=== PATIENT | female | born 1985 | race Two or more races ===

== ENCOUNTER 2024-05-14 17:30 | Inpatient (IN) | payer MEDICAID, OTHER ==
[~2024-05-14] VITALS: Ht 172.7 cm; Wt 123.6 kg
--- NOTE | 2024-05-14 18:17 | ED.PDOC ---
GI ASSESSMENT HPI Comments 38-year-old female who comes in with chief complaint of left-sided abdominal pain times 2-3 days. The patient denies any fever or chills. At this time, the patient's pain is a 10/10. There has been some nausea and diarrhea. The patient has a history of diverticulitis and states that the pain feels somewhat similar. The patient denies any other complaints at this time. Chief Complaint: Abdominal Pain Time Seen by MD: 17:39 Reviewed Notes: Nurses Notes, Medications, Allergies (No allergies to medications) Allergies: Coded Allergies: NO KNOWN ALLERGIES (Unverified , 05/14/24) Information Source: Patient Mode of Arrival: Ambulatory Timing: Days (Symptoms started 2-3 days ago) Duration: Since onset Prehospital treatment: None Quality: Aching, Cramping Vomitus: None Stool: Watery Severity: Moderate Recent: None Recent Hx of: Other (History of diverticulitis) Pain Location: LUQ, LLQ Modifying Factors: Nothing Associated sign and symptoms: Nausea, Diarrhea, Abdominal Pain Past Medical History PAST MEDICAL HISTORY: Thyroid Past Medical History (Other): Diverticulitis Surgical History: Cholecystectomy, Family History Family History: No family hx of Cancer, No family hx of DM, No family hx of Heart jacy Social History Smoker: Non-Smoker Alcohol: Denies ETOH Use Drugs: Denies Drug Use Lives In: Home Constitutional: denies: chills, diaphoresis, fatigue, fever, malaise, sweats, weakness, others EENTM: denies: blurred vision, double vision, ear bleeding, ear discharge, ear drainage, ear pain, ear ringing, eye pain, eye redness, hearing loss, mouth pain, mouth swelling, nasal discharge, nose bleeding, nose congestion, nose pain, photophobia, tearing, throat pain, throat swelling, voice changes, others Respiratory: denies: cough, hemoptysis, orthopnea, SOB at rest, shortness of breath, SOB with excertion, stridor, wheezing, others Cardiovascular: denies: chest pain, dizzy spells, diaphoresis, Dyspnea on exertion, edema, irregular heart beat, left arm pain, lightheadedness, palpitations, PND, syncope, others Gastrointestinal: reports: abdominal pain, diarrhea, nausea; denies: abdomen distended, blood streaked bowels, constipated, dysphagia, difficulty swallowing, hematemesis, melena, poor appetite, poor fluid intake, rectal bleeding, rectal pain, vomiting, others Genitourinary: denies: abnormal vagina bleeding, burning, dyspareunia, dysuria, flank pain, frequency, hematuria, incontinence, pain, , vagina discharge, urgency, others Neurological: denies: dizziness, fainting, headache, left sided numbness, left sided weakness, numbness, paresthesia, pre-existing deficit, right sided numbness, right sided weakness, seizure, speech problems, tingling, tremors, weakness, others Musculoskeletal: denies: back pain, gout, joint pain, joint swelling, muscle pain, muscle stiffness, neck pain, others Integumetry: denies: bruises, change in color, change in hair/nails, dryness, laceration, lesions, lumps, rash, wounds, others Allergic/Immunocompromised: denies: Difficulty Healing, Frequent Infections, Hives, Itching, others Hematologic/Lymphatic: denies: anemia, blood clots, easy bleeding, easy bruising, swollen glands, others Endocrine: denies: excessive hunger, excessive sweating, excessive thirst, excessive urination, flushing, intolerance to cold, intolerance to heat, unexplained weight gain, unexplained weight loss, others Psychiatric: denies: anxiety, bipolar disorder, depression, hopeless, panic disorder, schizophrenia, sleepless, suicidal, others Physical Exam General Appearance: Moderate Distress HEENT: Normal ENT Inspection, Pharynx Normal, TMs Normal Neck: Full Range of Motion, Non-Tender, Normal, Normal Inspection Respiratory: Chest Non-Tender, Lungs Clear, No Accessory Muscle Use, No Resp iratory Distress, Normal Breath Sounds Cardiovascular: No Edema, No JVD, No Murmur, No Gallop, Normal Peripheral Pulses, Regular Rate/Rhythm Breast Exam: Deferred Gastrointestinal: LLQ, LUQ, No Organomegaly, No Pulsatile Mass, Normal Bowel Sounds, Soft, Tenderness Genitalia: Deferred Pelvic: Deferred Rectal: Deferred Extremities: No calf tenderness, Normal capillary refill, Normal inspection, Normal range of motion, Non-tender, No pedal edema Musculoskeletal : Apperance: Normal Neurologic: Alert, special education tutor II-XII nml as Tested, No Motor Deficits, Normal Affect, Normal Mood, No Sensory Deficits Cerebellar Function: Normal Reflexes: Normal Skin: Dry, Normal Color, Warm Lymphatic: No Adenopathy Was a procedure done? Was a procedure done?: No GI differential Dx Differential Diagnosis: Appendicitis, Gastritis/PUD, Gastroenteritis, Inflammatory BD, Ischemic Bowel, Pancreatitis, UTI, Electrolyte Imbalance, Food Poisoning X-Ray, Labs, Meds, VS Vital Signs Date Time Temp Pulse Resp B/P (MAP) Pulse Ox O2 Delivery O2 Flow Rate FiO2 05/14/24 17:39 98.1 95 16 134/90 (105) 98 Lab Test 05/14/24 18:23 05/14/24 18:15 Range/Units Urine Color Yellow Yellow Urine Clarity Clear Clear Urine pH 6.0 5.0-9.0 Urine Specific [place] 1.025 1.001-1.035 Urine Protein Negative Negative Urine Ketones Negative Negative Urine Blood 2+ H Negative /uL Urine Nitrite Negative Negative Urine Bilirubin Negative Negative Urine Urobilinogen Normal Negative mg/dL Urine Leukocyte Esterase Negative Negative /uL Urine RBC 9 0 - 4 /hpf Urine WBC 4 0 - 5 /hpf Urine Squamous Epithelial Cells Few <5 /hpf Urine Bacteria Few H None Seen /hpf Urine Glucose Normal Normal mg/dL White Blood Count 6.8 4.4-10.8 10^3/uL Red Blood Count 4.48 4.0-5.20 10^6/uL Hemoglobin 12.5 12.2-16.2 g/dL Hematocrit 38.0 36.0-46.0 % Mean Corpuscular Volume 84.7 80.0-100.0 fL Mean Corpuscular Hemoglobin 27.8 L 28.0-32.0 pg Mean Corpuscular Hemoglobin Concent 32.8 32.0-36.0 g/dL Red Cell Distribution Width 15.7 H 11.8-14.3 % Platelet Count 343 140-450 10^3/uL Mean Platelet Volume 6.6 L 6.9-10.8 fL Neutrophils (%) (Auto) 61.7 37.0-80.0 % Lymphocytes (%) (Auto) 29.1 10.0-50.0 % Monocytes (%) (Auto) 6.2 0.0-12.0 % Eosinophils (%) (Auto) 2.3 0.0-7.0 % Basophils (%) (Auto) 0.7 0.0-2.0 % Neutrophils # (Auto) 4.2 1.6-8.6 10 ^3/uL Lymphocytes # (Auto) 2.0 0.4-5.4 10 ^3/uL Monocytes # (Auto) 0.4 0-1.3 10 ^3/uL Eosinophils # (Auto) 0.2 0-0.8 10 ^3/uL Basophils # (Auto) 0 0-0.2 10 ^3/uL Nucleated Red Blood Cells 0.1 % Sodium Level 140 136-145 mmol/L Potassium Level 3.7 3.5-5.1 mmol/L Chloride Level 107 98-107 mmol/L Carbon Dioxide Level 28 20-31 mmol/L Anion Gap 5 5-15 Blood Urea Nitrogen 11 9-23 mg/dL Creatinine 0.94 0.550-1.02 mg/dL Glomerular Filtration Rate Calc 79 >90 mL/min BUN/Creatinine Ratio 11.7 10.0-20.0 Serum Glucose 100 74-106 mg/dL Calcium Level 9.6 8.7-10.4 mg/dL Total Bilirubin 0.4 0.2-1.0 mg/dL Aspartate Amino Transferase (AST) 18 13-40 U/L Alanine Aminotransferase (ALT) 25 7-40 U/L Alkaline Phosphatase 118 H 46-116 U/L Total Protein 7.5 5.7-8.2 g/dL Albumin 4.6 3.2-4.8 g/dL Lipase 47 12-53 U/L IV Hep-Lock has been established. The patient was being given morphine 4 mg IV push for the pain The patient was given Zofran 4 mg IV push for the nausea The urine test is negative for leukocyte esterase The CBC is within normal limits. The CT scan of the abdomen and pelvis shows: IMPRESSION: 1. Mucosal thickening throughout the distal transverse and left colon with scattered diverticuli. There is stranding in the mesenteric fat of the distal descending colon which may represent non complicated diverticulitis. There is n o free air or abscess formation. Because of the findings, the patient was being started on Flagyl 500 mg IV piggyback The patient understands and is in agreement with the management. The patient was being admitted with a diagnosis of acute diverticulitis. Images Reviewed?: Images reviewed and evaluated by me Time of 1ST Reevaluation: 18:17 Reevaluation 1ST: Unchanged Patient Education/Counseling: Diagnosis, Treatment, Prognosis Family Education/Counseling: No Family Present Departure 1 Departure Time of Disposition: 18:38 Impression: Primary Impression: Intractable abdominal pain Additional Impression: Acute diverticulitis Disposition: ADMITTED INPATIENT Admit to: Med Surg Condition: Fair Critical Care Note Critical Care Time?: No Stability Stability form required: Yes Unstable for transfer: ED Physician Assesment (Clinical assesment) Heart Score Heart Score: Heart Score Response (Comments) Value History N/A 0 EKG N/A 0 Age N/A 0 Risk Factors N/A 0 Troponin N/A 0 Total 0 PINO CAMPOS MD May 14, 2024 18:17
[2024-05-14 18:28] LABS: Basophils # (auto) 0 10 ^3/uL (0-0.2); Basophils % (auto) 0.7 % (0.0-2.0); Eosinophils # (auto) 0.2 10 ^3/uL (0-0.8); Eosinophils % (auto) 2.3 % (0.0-7.0); Hemoglobin 12.5 g/dL (12.2-16.2); Lymphocytes % (auto) 29.1 % (10.0-50.0); Mean Corpuscular Hemoglobin 27.8 pg (28.0-32.0); Mean Corpuscular Hgb Conc. 32.8 g/dL (32.0-36.0); Mean Corpuscular Volume 84.7 fL (80.0-100.0); Monocytes # (auto) 0.4 10 ^3/uL (0-1.3); Monocytes % (auto) 6.2 % (0.0-12.0); Neutrophils # (auto) 4.2 10 ^3/uL (1.6-8.6); Neutrophils % (auto) 61.7 % (37.0-80.0); Nucleated Red Blood Cells % 0.1 %; Platelet Count (auto) 343 10^3/uL (140-450); Red Blood Cells 4.48 10^6/uL (4.0-5.20); Red Cell Distribution Width 15.7 % (11.8-14.3); White Blood Cell 6.8 10^3/uL (4.4-10.8)
--- NOTE | 2024-05-14 18:29 | DVH ---
Exam: CT CT AB PEL WO CON-NO ORAL OR IV History: pain Comparison Study: None available at time of dictation. TECHNIQUE: Multidetector CT of the abdomen was performed from lung bases to pubic symphysis. Imaging was performed without IV contrast. Axial, coronal and sagittal multiplanar reformats were obtained fr om the axial data set by the technologist. Radiation Dose Information: CT Dose: CTDI volume is 26.62 mGy. Dose-length product is 1450.73 mGy*cm FINDINGS: Evaluation of solid organs is limited due to lack of intravenous contrast use. Findings: Lung Bases: No acute or significant lung base finding. Normal heart size. No pleural or pericardial effusion. Liver: The liver is normal in size. No focal lesions. Gallbladder and Biliary Tree: Gallbladder has been surgically removed. Spleen: Unremarkable Pancreas: The pancreas is grossly normal in appearance. Adrenal Glands: Unremarkable Kidneys: Kidneys are grossly normal without calculi or hydronephrosis. Bladder: Grossly unremarkable for degree of distention. Bowel: The stomach is grossly normal in appearance. Small bowel and colon are normal in caliber and d istribution. Mucosal thickening of the distal transverse and left colon with scattered diverticulosis . There is minimal pericolonic stranding in the fat which may represent uncomplicated diverticulitis. There is no free air or free fluid. The appendix is not visualized; however, no secondary findings of acute appendicitis identified. Ascites: Absent Lymphadenopathy: No mesenteric, retroperitoneal or periportal lymphadenopathy. Abdominal Wall and Mesentery: Unremarkable. Vasculature: The visualized abdominal aorta is normal in size and caliber. Evaluation of abdominal a nd pelvic vessels is limited due to lack of intravenous contrast. Pelvic Organs: Unremarkable Musculoskeletal: No aggressive focal bony lesions, acute fractures or dislocation. Soft tissues: Unremarkable IMPRESSION: 1. Mucosal thickening throughout the distal transverse and left colon with scattered diverticuli. The re is stranding in the mesenteric fat of the distal descending colon which may represent non complica darrian diverticulitis. There is no free air or abscess formation. Radiation optimization: All CT scans at this facility use at least one of these dose optimization berna hniques: automated exposure control mA and/or kV adjustment per patient size (includes targeted exam s where dose is matched to clinical indication) or iterative reconstruction. HS:Y
[2024-05-14 18:30] LABS: Urine Bacteria FEW /hpf (None Seen); Urine Blood 2+ /uL (Negative); Urine Clarity Clear (Clear); Urine Color Yellow (Yellow); Urine Protein, UAD Negative (Negative); Urine Specific Gravity 1.025 (1.001-1.035); Urine Squamous Epithelial Cell FEW /hpf (<5); Urine Urobilinogen Normal (Negative); Urine WBC 4 /hpf (0 - 5)
[2024-05-14 18:44] LABS: Alanine Aminotransferase 25 U/L (7-40); Albumin 4.6 g/dL (3.2-4.8); Anion Gap 5 (5-15); Aspartate Aminotransferase 18 U/L (13-40); BUN/Creatinine Ratio 11.7 (10.0-20.0); Bilirubin, Total 0.4 mg/dL (0.2-1.0); Blood Urea Nitrogen 11 mg/dL (9-23); Calcium 9.6 mg/dL (8.7-10.4); Carbon Dioxide 28 mmol/L (20-31); Chloride 107 mmol/L (98-107); Glucose 100 mg/dL (74-106); Potassium 3.7 mmol/L (3.5-5.1); Sodium 140 mmol/L (136-145); Total Protein 7.5 g/dL (5.7-8.2)
[2024-05-14 18:51] LABS: Alkaline Phosphatase 118 U/L (46-116)
[2024-05-14 19:00] LABS: Lipase 47 U/L (12-53)
[2024-05-14] MEDS: ONDANSETRON HCL 4 MG/2 ML VIAL IV ONE (20:25)
[2024-05-14] MEDS: MORPHINE SULFATE 4 MG/ML SYR/VIAL IV ONE (20:26)
[2024-05-14] MEDS: metroNIDAZOLE 500MG/100ML 100 ML IV ONE (20:45)
[2024-05-14 20:49] VITALS: PULSE 81; RESP 16; O2SAT 97
--- NOTE | 2024-05-14 21:07 | DVHHPRES ---
History of Present Illness Resident Creating Document: JOLENE NEWBY RESIDENT History of Present Illness This is a 38 years old female with past medical history of diverticulitis, Juancarlos thyroiditis, endometriosis presented to the ED with a chief complaint of left lower abdominal pain and blood in stool for 2 days prior to this admission. Patient states that abdominal pain is colicky in nature, radiates to back ,10/10 associated with nausea and hematochezia. Also complains of dysuria and burning sensation in the urine for the same she duration. The patient mentioned that last flare-up of diverticulitis was in last January,, was hospitalized but never did any colonoscopy or followed by GI before. The patient denies chest pain, shortness of breath, dizziness, diaphoresis, sick contact, diarrhea or constipation. Past Medical History Diverticulitis, Juancarlos thyroiditis, endometriosis Past Surgical History Cholecystectomy, , laparoscopy Family History None Past Social History Lives with family Nonsmoker, nonalcoholic and never tried any drugs Review of Systems Constitutional: Yes: Chills; No: Fever, Sweats, Weakness, Malaise, Other Eyes: No: Pain, Vision change, Conjunctivae inflammation, Eyelid inflammation, Other, Redness ENT: No: Ear pain, Ear discharge, Nose pain, Nose discharge, Nose congestion, Mouth pain, Mouth swelling, Throat pain, Throat swelling, Other Respiratory: No: Cough, Dry, Shortness of breath, SOB with excertion, Wheezing, Hemoptysis, Pleuritic Pain, Sputum, Wheezing, Other Cardiovascular: No: Chest Pain, Palpitations, Orthopnea, Paroxysmal Noc. Dyspnea, Edema, Lt Headedness, Other Gastrointestinal: Nausea, Abdominal Pain, Hematochezia; No: Vomiting, Diarrhea, Constipation, Melena, Other Genitourinary: Dysuria, Frequency; No Incontinence, No Hematuria, No Retention, No Other Musculoskeletal: No: other, neck pain, shoulder pain, arm pain, back pain, hand pain, leg pain, foot pain Skin: No: Rash, Lesions, Jaundice, Bruising, Other Neurological: No: Weakness, Numbness, Incoordination, Change in speech, Confusion, Seizures, Other Allergies: Coded Allergies: NO KNOWN ALLERGIES (Unverified , 05/14/24) Exam Vital Signs Vital Signs Date Time Temp Pulse Resp B/P (MAP) Pulse Ox O2 Delivery O2 Flow Rate FiO2 05/14/24 20:51 81 16 134/79 (97) 96 05/14/24 20:49 Room Air* 0 21 05/14/24 17:39 98.1 Exam Physical examination: General Appearance: Alert, Oriented X3, Cooperative, No acute distress HEENT: Atraumatic, PERRLA, EOMI, Mucous membrane moist/pink Respiratory: Clear to auscultation, Normal air movement Cardiovascular: Regular rate, Normal S1, Normal S2, No murmurs, no chest wall tenderness Abdominal: Normal bowel sounds, Soft, mild tenderness in the Lt hypochondriac region, No hepatospenomegaly, No masses Extremities: No clubbing, No cyanosis, No edema, Normal pulses, No tenderness/swelling Skin: No rashes, No breakdown, No significant lesion Neuro: Normal gait, Normal speech, Strength at 5/5 X4 ext, Normal tone, Sensation intact, grossly intact cranial nerves. Psych/Mental Status: Mental status NL, Mood NL Labs/Xrays Labs Test 05/14/24 18:23 05/14/24 18:15 Range/Units Urine Color Yellow Yellow Urine Clarity Clear Clear Urine pH 6.0 5.0-9.0 Urine Specific [place] 1.025 1.001-1.035 Urine Protein Negative Negative Urine Ketones Negative Negative Urine Blood 2+ H Negative /uL Urine Nitrite Negative Negative Urine Bilirubin Negative Negative Urine Urobilinogen Normal Negative mg/dL Urine Leukocyte Esterase Negative Negative /uL Urine RBC 9 0 - 4 /hpf Urine WBC 4 0 - 5 /hpf Urine Squamous Epithelial Cells Few <5 /hpf Urine Bacteria Few H None Seen /hpf Urine Glucose Normal Normal mg/dL White Blood Count 6.8 4.4-10.8 10^3/uL Red Blood Count 4.48 4.0-5.20 10^6/uL Hemoglobin 12.5 12.2-16.2 g/dL Hematocrit 38.0 36.0-46.0 % Mean Corpuscular Volume 84.7 80.0-100.0 fL Mean Corpuscular Hemoglobin 27.8 L 28.0-32.0 pg Mean Corpuscular Hemoglobin Concent 32.8 32.0-36.0 g/dL Red Cell Distribution Width 15.7 H 11.8-14.3 % Platelet Count 343 140-450 10^3/uL Mean Platelet Volume 6.6 L 6.9-10.8 fL Neutrophils (%) (Auto) 61.7 37.0-80.0 % Lymphocytes (%) (Auto) 29.1 10.0-50.0 % Monocytes (%) (Auto) 6.2 0.0-12.0 % Eosinophils (%) (Auto) 2.3 0.0-7.0 % Basophils (%) (Auto) 0.7 0.0-2.0 % Neutrophils # (Auto) 4.2 1.6-8.6 10 ^3/uL Lymphocytes # (Auto) 2.0 0.4-5.4 10 ^3/uL Monocytes # (Auto) 0.4 0-1.3 10 ^3/uL Eosinophils # (Auto) 0.2 0-0.8 10 ^3/uL Basophils # (Auto) 0 0-0.2 10 ^3/uL Nucleated Red Blood Cells 0.1 % Sodium Level 140 136-145 mmol/L Potassium Level 3.7 3.5-5.1 mmol/L Chloride Level 107 98-107 mmol/L Carbon Dioxide Level 28 20-31 mmol/L Anion Gap 5 5-15 Blood Urea Nitrogen 11 9-23 mg/dL Creatinine 0.94 0.550-1.02 mg/dL Glomerular Filtration Rate Calc 79 >90 mL/min BUN/Creatinine Ratio 11.7 10.0-20.0 Serum Glucose 100 74-106 mg/dL Calcium Level 9.6 8.7-10.4 mg/dL Total Bilirubin 0.4 0.2-1.0 mg/dL Aspartate Amino Transferase (AST) 18 13-40 U/L Alanine Aminotransferase (ALT) 25 7-40 U/L Alkaline Phosphatase 118 H 46-116 U/L Total Protein 7.5 5.7-8.2 g/dL Albumin 4.6 3.2-4.8 g/dL Lipase 47 12-53 U/L Assessment/Plan Assessment/Plan Assessment and plan: # Intractable abdominal pain likely secondary to diverticulitis - CT abdomen pelvis revealed mucosal thickening throughout the distal transverse and left colon with scattered diverticuli and there is stranding in the mesenteric fat of the distal descending colon which may represent non complicated diverticulitis. - NPO - IV normal saline at 75 ml/hr - IV ceftriaxone 2 gm daily - IV metronidazole 500 mg t.i.d. - IV morphine 2 mg q.4 p.r.n. - IV ondansetron 4 mg q.4 p.r.n. 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 # Morbid obesity ( BMI 41.4 kg/m2) - Counseled patient regarding Mediterranean diet, lifestyle modification and physical exercise. # PUD prophylaxis - Pepcid 20 mg p.o. daily # DVT prophylaxis - Not recommended as patient is mobile Goal of Care discussed with the patient for more than 17 minutes full code Plan discussed with Dr. Garcia Plan discussed with: Patient, Other Date of Service: May 14, 2024 Billing Provider: IRIS GARCIA MD Common Visit Codes: [id number] INP/OBS CARE (HIGH) JOLENE NEWBY RESIDENT May 14, 2024 21:07 IRIS GARCIA MD May 15, 2024 20:11
[2024-05-14] MEDS ORDERED: cefTRIAXone 1GM/50ML D5W 50 ML IV ONE (21:15)
[2024-05-14] MEDS: cefTRIAXone 2GM/50ML D5W 50 ML IV ONE (21:39)
[2024-05-14] MEDS ORDERED: ONDANSETRON HCL 4 MG/2 ML VIAL IV PRN (22:00)
[2024-05-15] VITALS (9 sets, daily range): BP systolic 99–145; BP diastolic 58–76; PULSE 73–85; RESP 17–71; TEMP 98–98.7; O2SAT 94–99
[2024-05-15] MEDS: SODIUM CHLORIDE 0.9% 1,000 ML IV SCH (00:35)
[2024-05-15] MEDS ORDERED: LEVO200T7 PO (01:02)
[2024-05-15] MEDS ORDERED: LAMO100T44 PO (01:02)
[2024-05-15] MEDS ORDERED: METH18TA5 PO (01:02)
[2024-05-15] MEDS ORDERED: DESV1TAB15 PO (01:02)
[2024-05-15] MEDS ORDERED: ARIP20TA4 PO (01:02)
[2024-05-15] MEDS: MORPHINE SULFATE 4 MG/ML SYR/VIAL IV PRN (01:58)
[2024-05-15] MEDS: LEVOTHYROXINE SODIUM 100 MCG TAB PO SCH (05:47)
[2024-05-15] MEDS: metroNIDAZOLE 500MG/100ML 100 ML IV SCH (05:48)
[2024-05-15] MEDS ORDERED: cefTRIAXone 1GM/50ML D5W 50 ML IV SCH (10:00)
[2024-05-15] MEDS: cefTRIAXone 2GM/50ML D5W 50 ML IV SCH (10:10)
--- NOTE | 2024-05-15 11:35 | DVHPN2 ---
Progress Note Date Seen: May 15, 2024 Medical Necessity Reason Pt with a Central, PICC or Fol: No Subjective Patient reports: No new complaints Review of Systems: HEENT:Normal, CVS:Normal, RESPIRATORY:Normal, GI:Normal, :Normal, MSK:Normal, NEURO:Normal Objective vital signs Vital Sign Date Time Temp Pulse Resp B/P (MAP) Pulse Ox O2 Delivery O2 Flow Rate FiO2 05/15/24 08:53 98.7 78 18 100/63 (75) 98 98.7 05/15/24 02:13 Room Air* 0 21 Total Intake and Output 05/14/24 05/14/24 05/15/24 15:00 23:00 07:00 Intake Total 150 ml 0 ml Balance 150 ml 0 ml medications Current Medications Medications Dose Ordered Sig/Rohan Route Start Time Stop Time Status Last Admin Dose Admin Sodium Chloride 1,000 ml @ 75 mls/hr [id number] IV 05/14/24 21:15 05/15/24 00:35 75 MLS/HR Metronidazole 100 ml @ 100 mls/hr TID IV 05/15/24 06:00 05/15/24 05:48 100 MLS/HR Morphine Sulfate 4 mg Q4HPRN PRN IV 05/15/24 02:00 05/15/24 01:58 4 MG Ondansetron HCl 4 mg Q8HPRN PRN IV 05/14/24 22:00 Ceftriaxone Sodium/Dextrose 50 ml @ 50 mls/hr DAILY IV 05/15/24 10:00 05/15/24 10:10 50 MLS/HR Levothyroxine Sodium 200 mcg QAM@0600 PO 05/15/24 06:00 05/15/24 05:47 200 MCG Examination: GENERAL:Normal, HEENT:Normal, NECK:Normal, LUNGS:Normal, CVS:Normal, ABDOMEN:Normal, MSK:Normal, SKIN:Normal, NEURO:Normal, :Normal laboratory and microbiology Laboratory Tests 05/14/24 18:15 Test 05/14/24 18:15 Range/Units Serum Glucose 100 74-106 mg/dL Problem List/Assessment/Plan Problem List/Assessment/Plan #1 acute diverticulitis: iv antibiotics, ivf #2 uncontrolled hypothyroidism: adjust meds #3 morbid obesity #4 bipolar disorder Plan discussed with: Patient My Orders My Orders Orders - TUNDE CALVILLO MD Procedure Category Date Status Time Lamotrigine Tablet PHA 05/16/24 Verified (Lamictal Tablet) 10:00 Clear Liq Diet DIET 05/15/24 Verified Lunch Hydrocodone-Acet PHA 05/15/24 Verified 5/325mg Tab ([place] 11:45 Morphine Sulfate PHA 05/15/24 Verified Injection 11:45 Basic Metabolic Panel LAB 05/16/24 Verified 06:00 Complete Blood Count LAB 05/16/24 Verified 06:00 Date of Service: May 15, 2024 Billing Provider: TUNDE CALVILLO MD Common Visit Codes: [id number] INP/OBS CARE(HIGH) TUNDE CALVILLO MD May 15, 2024 11:35
[2024-05-15] MEDS ORDERED: MORPHINE SULFATE INJ 2 MG/ml SYRG IV PRN (11:45)
[2024-05-15] MEDS: HYDROcodone-ACET 5/325MG TAB PO PRN (12:35)
[2024-05-16 01:03] VITALS: BP 98/56; PULSE 76; RESP 18; TEMP 98.2; O2SAT 95
[2024-05-16 05:00] VITALS: BP 115/68; PULSE 74; RESP 18; TEMP 98.1; O2SAT 97
[2024-05-16 07:44] LABS: Basophils # (auto) 0 10 ^3/uL (0-0.2); Basophils % (auto) 0.8 % (0.0-2.0); Eosinophils # (auto) 0.1 10 ^3/uL (0-0.8); Hemoglobin 11.7 g/dL (12.2-16.2); Lymphocytes # (auto) 1.2 10 ^3/uL (0.4-5.4); Lymphocytes % (auto) 24.6 % (10.0-50.0); Mean Corpuscular Hemoglobin 28.2 pg (28.0-32.0); Mean Corpuscular Hgb Conc. 33.4 g/dL (32.0-36.0); Mean Corpuscular Volume 84.5 fL (80.0-100.0); Monocytes # (auto) 0.3 10 ^3/uL (0-1.3); Neutrophils # (auto) 3.2 10 ^3/uL (1.6-8.6); Neutrophils % (auto) 64.6 % (37.0-80.0); Platelet Count (auto) 274 10^3/uL (140-450); Red Blood Cells 4.14 10^6/uL (4.0-5.20); Red Cell Distribution Width 15.4 % (11.8-14.3); White Blood Cell 4.9 10^3/uL (4.4-10.8)
[2024-05-16 08:00] VITALS: PULSE 85; RESP 16; O2SAT 99
[2024-05-16 08:00] LABS: Potassium 3.7 mmol/L (3.5-5.1); Sodium 142 mmol/L (136-145)
[2024-05-16 08:01] LABS: Anion Gap 9 (5-15); Calcium 9.1 mg/dL (8.7-10.4); Carbon Dioxide 25 mmol/L (20-31)
[2024-05-16 08:06] LABS: BUN/Creatinine Ratio 8.5 (10.0-20.0); Glucose 88 mg/dL (74-106)
[2024-05-16 08:09] LABS: Blood Urea Nitrogen 7 mg/dL (9-23); Chloride 108 mmol/L (98-107)
[2024-05-16 08:59] VITALS: BP 117/85; PULSE 85; RESP 16; TEMP 98.1; O2SAT 99
[2024-05-16] MEDS: lamoTRIgine 100 MG TAB PO SCH (09:20)
--- NOTE | 2024-05-16 12:59 | DVHDS2 ---
Discharge Summary Date of Admission May 14, 2024 at 21:05 Date of Discharge: May 16, 2024 Labs/Diagnostic Data: Laboratory Results Test 05/16/24 05:55 05/14/24 18:23 05/14/24 18:15 White Blood Count 4.9 10^3/uL (4.4-10.8) Red Blood Count 4.14 10^6/uL (4.0-5.20) Hemoglobin 11.7 g/dL (12.2-16.2) Hematocrit 35.0 % (36.0-46.0) Mean Corpuscular Volume 84.5 fL (80.0-100.0) Mean Corpuscular Hemoglobin 28.2 pg (28.0-32.0) Mean Corpuscular Hemoglobin Concent 33.4 g/dL (32.0-36.0) Red Cell Distribution Width 15.4 % (11.8-14.3) Platelet Count 274 10^3/uL (140-450) Mean Platelet Volume 7.0 fL (6.9-10.8) Neutrophils (%) (Auto) 64.6 % (37.0-80.0) Lymphocytes (%) (Auto) 24.6 % (10.0-50.0) Monocytes (%) (Auto) 7.0 % (0.0-12.0) Eosinophils (%) (Auto) 3.0 % (0.0-7.0) Basophils (%) (Auto) 0.8 % (0.0-2.0) Neutrophils # (Auto) 3.2 10 ^3/uL (1.6-8.6) Lymphocytes # (Auto) 1.2 10 ^3/uL (0.4-5.4) Monocytes # (Auto) 0.3 10 ^3/uL (0-1.3) Eosinophils # (Auto) 0.1 10 ^3/uL (0-0.8) Basophils # (Auto) 0 10 ^3/uL (0-0.2) Nucleated Red Blood Cells 0.0 % Sodium Level 142 mmol/L (136-145) Potassium Level 3.7 mmol/L (3.5-5.1) Chloride Level 108 mmol/L (98-107) Carbon Dioxide Level 25 mmol/L (20-31) Anion Gap 9 (5-15) Blood Urea Nitrogen 7 mg/dL (9-23) Creatinine 0.82 mg/dL (0.550-1.02) Glomerular Filtration Rate Calc 93 mL/min (>90) BUN/Creatinine Ratio 8.5 (10.0-20.0) Serum Glucose 88 mg/dL (74-106) Calcium Level 9.1 mg/dL (8.7-10.4) Urine Color Yellow (Yellow) Urine Clarity Clear (Clear) Urine pH 6.0 (5.0-9.0) Urine Specific [place] 1.025 (1.001-1.035) Urine Protein Negative (Negative) Urine Ketones Negative (Negative) Urine Blood 2+ /uL (Negative) Urine Nitrite Negative (Negative) Urine Bilirubin Negative (Negative) Urine Urobilinogen Normal mg/dL (Negative) Urine Leukocyte Esterase Negative /uL (Negative) Urine RBC 9 /hpf (0 - 4) Urine WBC 4 /hpf (0 - 5) Urine Squamous Epithelial Cells Few /hpf (<5) Urine Bacteria Few /hpf (None Seen) Urine Glucose Normal mg/dL (Normal) Hemoglobin A1c 5.5 % A1C (<5.7) Total Bilirubin 0.4 mg/dL (0.2-1.0) Aspartate Amino Transferase (AST) 18 U/L (13-40) Alanine Aminotransferase (ALT) 25 U/L (7-40) Alkaline Phosphatase 118 U/L (46-116) Total Protein 7.5 g/dL (5.7-8.2) Albumin 4.6 g/dL (3.2-4.8) Lipase 47 U/L (12-53) Thyroid Stimulating Hormone (TSH) 16.79 uIU/mL (0.55-4.78) Other Laboratory Tests 05/16/24 05:55 Brief Hx & Hospital Course: SEE DICTATED NOTE Condition at Discharge: Good Final Diagnosis/Problems List ACUTE DIVERTICULITIS Discharge Disposition: Home Discharge Instruct/Medications Diet: Cardiac 2g Na,low cholest Activity: No Restrictions, As Tolerated Follow Up/Referral: FU WITH PCP IN 1 WK Medications: RESUME HOME MEDS ADJUST THYROID MED SCRIPT TO PHARMACY Discharge Statement: "Patient was advised to return to the ER or call 911 if any headaches, dizziness, shortness of breath, chest pain, abdominal pain, bleeding, fevers, or worsening of medical condition. Patient was counseled about treatment plan, medications, possible side effects, patientverbalized understanding. All questions were answered to the best of my ability. This discharge took greater then 30 minutes in planning, reviewing documentation, counseling the patient, and discussing with other team members." ASSESSMENT ASSESSMENT Assessment ACUTE DIVERTICULITIS Date of Service: May 16, 2024 Billing Provider: TUNDE CALVILLO MD Common Visit Codes: [id number] DISCH DAY >30min TUNDE CALVILLO MD May 16, 2024 12:59
[2024-05-16] MEDS ORDERED: MET500T PO (13:02)
[2024-05-16] MEDS ORDERED: LEVO50CA3 PO (13:02)
[2024-05-16] MEDS ORDERED: LEVO500T91 PO (13:02)
--- NOTE | 2024-05-16 13:09 | DVHDS ---
DATE OF DISCHARGE: 05/16/2024 The patient is a 38-year-old lady who was admitted with complaints of left lower abdominal pain and has history of diverticulitis and hypothyroidism. HOSPITAL COURSE: The patient had a CT of abdomen and pelvis that showed evidence of left colon diverticulitis in the distal descending colon. The patient's TSH was uncontrolled at 16.7. The patient is now improved in her symptoms. She will be discharged home to resume her home medications except her levothyroxine dose will be increased from 200 mcg to 250 mcg daily and she will also be placed on Levaquin 500 mg daily for 10 days and metronidazole 500 mg t.i.d. for 10 days. She will follow up with her primary in one week. I have also asked her to do an outpatient colonoscopy in the next two to three months. FINAL DIAGNOSES: * Acute diverticulitis. * Uncontrolled hypothyroidism. * Morbid obesity. * Bipolar disorder. Time spent in discharge planning and review of plan with the patient and nursing was 37 minutes. MD KATARZYNA Alvarenga/VICENTE TID: [id number] RECEIPT: [id number]
[2024-05-16 13:17] VITALS: BP 113/62; PULSE 89; RESP 16; TEMP 98.1; O2SAT 98
[2024-05-16 13:48] VITALS: BP 113/62; PULSE 89; RESP 16; TEMP 98.1; O2SAT 98
== END 2024-05-16 14:18 | disposition home or self-care (01) | DRG 244 ==
LOC: ER 17:30 → OVERFLOW 21:05 → EAST 05-15 01:35
PROVIDERS: ATTEND Internal Medicine
DX: K57.32 Diverticulitis of large intestine without perforation or abscess without bleeding (principal); E06.3 Autoimmune thyroiditis; N30.00 Acute cystitis without hematuria; E11.9 Type 2 diabetes mellitus without complications; E66.01 Morbid (severe) obesity due to excess calories; F31.9 Bipolar disorder, unspecified; Z68.41 Body mass index [BMI] 40.0-44.9, adult; Z71.3 Dietary counseling and surveillance; Z90.49 Acquired absence of other specified parts of digestive tract; Z98.891 History of uterine scar from previous surgery
CPT/HCPCS: 36415; 74176; 80048; 80053; 81001; 83036; 83690; 84443; 85025; 87086; G0378; J2405; J3490

== ENCOUNTER 2024-10-01 11:48 | Emergency (ER) | payer MEDICAID ==
[~2024-10-01] VITALS: Ht 175.3 cm; Wt 126.8 kg
[~2024-10-01 11:48] MED LIST: ARIP20TA4 PO; DESV1TAB15 PO; LAMO100T44 PO; LEVO200T7 PO; LEVO500T91 PO; LEVO50CA3 PO; MET500T PO; METH18TA5 PO
--- NOTE | 2024-10-01 12:08 | ED.PDOC ---
General HPI Comments 38 y.o female with PMHx of Diverticulitis, Juancarlos, BPD, Anxiety and Depression, presents to the ED for a chief complaint of left sided flank pain associated with a fever, dysuria, nausea and diarrhea that started 2-3 days ago but worsened today. Patient describes pain as sharp, non radiating, constant, rating a 10/10 on the pain scale and has no alleviating factors. Patient denies any hematuria, bloody stool, chills, vomiting. Time Seen by MD: 12:01 Reviewed notes: Nurses Notes, Medications, Allergies Allergies: Coded Allergies: NO KNOWN ALLERGIES (Unverified , 05/14/24) Home Meds Active Scripts Metronidazole (Metronidazole) 500 Mg Tab, 500 MG PO TID for 10 Days, #30 TAB Prov:TUNDE CALVILLO MD 05/16/24 Levofloxacin Hemihydrate (LEVAQUIN 500 MG) 500 Mg Tab, 500 MG PO DAILY for 10 Days, #10 TAB Prov:TUNDE CALVILLO MD 05/16/24 Levothyroxine Sodium (Levothyroxine Sodium) 50 Mcg Cap, 50 MCG PO QAM for 30 Days, #30 CAP 3 Refills Prov:TUNDE CALVILLO MD 05/16/24 Reported Medications Methylphenidate Hcl (Concerta) 18 Mg Tab, 1 TAB PO DAILY, #30 TAB 05/15/24 Aripiprazole (Abilify) 20 Mg Tab, 1 TAB PO DAILY, #30 TAB 1 Refill 05/15/24 Desvenlafaxine Succinate Monoh (Pristiq) 25 Mg Tab, 25 MG PO, TAB 05/15/24 Lamotrigine (Lamotrigine) 100 Mg Tab, 50 MG PO BID, TAB 05/15/24 Levothyroxine Sodium (Levothyroxine Sodium) 200 Mcg Tab, 200 MCG PO, TAB 05/15/24 Information Source: Patient Mode of Arrival: Ambulatory Severity: Moderate Timing: Days Duration: Since onset Onset: Spontaneous Symptoms: Dysuria History of: None Location: (L)Flank Modifying factors: None associated signs and symptoms: Fever, Nausea, Flank Pain, Back Pain, Dysuria Past Medical History PAST MEDICAL HISTORY: Anxiety, Depression, Thyroid Past Medical History (Other): Bipolar disorder, diverticulitis Surgical History: Cholecystectomy, , Tubal Ligation Family History Family History: No family hx of Cancer, No family hx of DM, No family hx of Heart jacy Social History Smoker: Non-Smoker Alcohol: Denies ETOH Use Drugs: Denies Drug Use Lives In: Home Constitutional: reports: fever; denies: chills, diaphoresis, fatigue, malaise, sweats, weakness, others EENTM: denies: blurred vision, double vision, ear bleeding, ear discharge, ear drainage, ear pain, ear ringing, eye pain, eye redness, hearing loss, mouth pain, mouth swelling, nasal discharge, nose bleeding, nose congestion, nose pain, photophobia, tearing, throat pain, throat swelling, voice changes, others Respiratory: denies: cough, hemoptysis, orthopnea, SOB at rest, shortness of breath, SOB with excertion, stridor, wheezing, others Cardiovascular: denies: chest pain, dizzy spells, diaphoresis, Dyspnea on exertion, edema, irregular heart beat, left arm pain, lightheadedness, palpitations, PND, syncope, others Gastrointestinal: reports: diarrhea, nausea; denies: abdomen distended, abdominal pain, blood streaked bowels, constipated, dysphagia, difficulty swallo wing, hematemesis, melena, poor appetite, poor fluid intake, rectal bleeding, rectal pain, vomiting, others Genitourinary: reports: dysuria; denies: abnormal vagina bleeding, burning, dyspareunia, flank pain, frequency, hematuria, incontinence, pain, , vagina discharge, urgency, others Neurological: denies: dizziness, fainting, headache, left sided numbness, left sided weakness, numbness, paresthesia, pre-existing deficit, right sided numbness, right sided weakness, seizure, speech problems, tingling, tremors, weakness, others Musculoskeletal: reports: back pain; denies: gout, joint pain, joint swelling, muscle pain, muscle stiffness, neck pain, others Integumetry: denies: bruises, change in color, change in hair/nails, dryness, laceration, lesions, lumps, rash, wounds, others Allergic/Immunocompromised: denies: Difficulty Healing, Frequent Infections, Hives, Itching, others Hematologic/Lymphatic: denies: anemia, blood clots, easy bleeding, easy bruising, swollen glands, others Endocrine: denies: excessive hunger, excessive sweating, excessive thirst, excessive urination, flushing, intolerance to cold, intolerance to heat, unexplained weight gain, unexplained weight loss, others Psychiatric: denies: anxiety, bipolar disorder, depression, hopeless, panic disorder, schizophrenia, sleepless, suicidal, others All Other Systems: Reviewed and Negative Physical Exam General Appearance: Mild Distress HEENT: Normal ENT Inspection, Pharynx Normal, TMs Normal Neck: Full Range of Motion, Non-Tender, Normal, Normal Inspection Respiratory: Chest Non-Tender, Lungs Clear, No Accessory Muscle Use, No Respiratory Distress, Normal Breath Sounds Cardiovascular: No Edema, No JVD, No Murmur, No Gallop, Normal Peripheral Pulses, Regular Rate/Rhythm Breast Exam: Deferred Gastrointestinal: LLQ, No Organomegaly, No Pulsatile Mass, Normal Bowel Sounds, Soft, Tenderness Genitalia: Deferred Pelvic: Deferred Rectal: Deferred Extremities: No calf tenderness, Normal capillary refill, Normal inspection, Normal range of motion, Non-tender, No pedal edema Musculoskeletal : Apperance: Normal Neurologic: Alert, procurement consultant II-XII nml as Tested, No Motor Deficits, Normal Affect, Normal Mood, No Sensory Deficits Cerebellar Function: Normal Reflexes: Normal Skin: Dry, Normal Color, Warm Lymphatic: No Adenopathy Was a procedure done? Was a procedure done?: No Differential Diagnosis Kidney stone (Female): Musculoskeletal pain, Pyelonephritis, Strain Urinary Problem (Female): Pyelonephritis, UTI X-Ray, Labs, Meds, VS Vital Signs Date Time Temp Pulse Resp B/P (MAP) Pulse Ox O2 Delivery O2 Flow Rate FiO2 10/01/24 13:16 90 17 98 Room Air 10/01/24 13:16 98.8 90 18 147/89 (108) 98 98.8 10/01/24 12:02 98.6 92 18 133/81 (98) 96 98.6 Lab Test 10/01/24 12:13 10/01/24 12:05 Range/Units White Blood Count 9.4 4.4-10.8 10^3/uL Red Blood Count 4.71 4.0-5.20 10^6/uL Hemoglobin 13.1 12.2-16.2 g/dL Hematocrit 38.8 36.0-46.0 % Mean Corpuscular Volume 82.4 80.0-100.0 fL Mean Corpuscular Hemoglobin 27.9 L 28.0-32.0 pg Mean Corpuscular Hemoglobin Concent 33.8 32.0-36.0 g/dL Red Cell Distribution Width 15.5 H 11.8-14.3 % Platelet Count 363 140-450 10^3/uL Mean Platelet Volume 6.8 L 6.9-10.8 fL Neutrophils (%) (Auto) 71.3 37.0-80.0 % Lymphocytes (%) (Auto) 21.1 10.0-50.0 % Monocytes (%) (Auto) 6.0 0.0-12.0 % Eosinophils (%) (Auto) 1.1 0.0-7.0 % Basophils (%) (Auto) 0.5 0.0-2.0 % Neutrophils # (Auto) 6.7 1.6-8.6 10 ^3/uL Lymphocytes # (Auto) 2.0 0.4-5.4 10 ^3/uL Monocytes # (Auto) 0.6 0-1.3 10 ^3/uL Eosinophils # (Auto) 0.1 0-0.8 10 ^3/uL Basophils # (Auto) 0 0-0.2 10 ^3/uL Nucleated Red Blood Cells 0.0 % Sodium Level 140 136-145 mmol/L Potassium Level 4.0 3.5-5.1 mmol/L Chloride Level 104 98-107 mmol/L Carbon Dioxide Level 27 20-31 mmol/L Anion Gap 9 5-15 Blood Urea Nitrogen 18 9-23 mg/dL Creatinine 0.80 0.550-1.02 mg/dL Glomerular Filtration Rate Calc 96 >90 mL/min BUN/Creatinine Ratio 22.5 H 10.0-20.0 Serum Glucose 101 74-106 mg/dL Calcium Level 10.0 8.7-10.4 mg/dL Urine Color Light-yellow Yellow Urine Clarity Clear Clear Urine pH 5.5 5.0-9.0 Urine Specific Issue 1.024 1.001-1.035 Urine Protein Negative Negative Urine Ketones Negative Negative Urine Blood Negative Negative /uL Urine Nitrite Negative Negative Urine Bilirubin Negative Negative Urine Urobilinogen Normal Negative mg/dL Urine Leukocyte Esterase Trace Negative /uL Urine RBC 2 0 - 4 /hpf Urine Microscopic WBC 1 0-5 /HPF Urine Squamous Epithelial Cells Few <5 /hpf Urine Bacteria None seen None Seen /hpf Urine Glucose Normal Normal mg/dL Urine Test Negative Negative Current Medications Medications (Trade) Dose Ordered Sig/Rohan Route Start Time Stop Time Status Last Admin Ketorolac Tromethamine (Toradol Injection) 30 mg ONCE ONCE IV 10/01/24 12:15 10/01/24 12:16 DC 10/01/24 13:17 Scan of the abdomen and pelvis shows: IMPRESSION: No acute intraabdominal abnormality. moderate to severe colonic diverticulosis. Mild hepatic steatosis IV Hep-Lock was established The patient was given Toradol 30 mg IV push The CBC and chemistry panel are within normal limits The urine test is negative The patient is being discharged with a diagnosis of abdominal pain Images Reviewed?: Images reviewed and evaluated by me Time of 1ST Reevaluation: 12:40 Reevaluation 1ST: Unchanged Patient Education/Counseling: Diagnosis, Treatment, Prognosis, Need For Follow Up Family Education/Counseling: No Family Present Departure 1 Departure Time of Disposition: 13:26 Impression: Primary Impression: Abdominal pain of unknown etiology Disposition: 01 HOME / SELF CARE / HOMELESS Condition: Fair Discharged With: Self Critical Care Note Critical Care Time?: No Stability Stability form required: No I personally scribed for PINO CAMPOS MD ([email or web address]) on 10/01/24 at 12:08. Electronically submitted by Elena Sanford ([facility]). PINO CAMPOS MD October 01, 2024 12:08
[2024-10-01] MEDS: SODIUM CHLORIDE 0.9% 500 ML IVB ONE (12:15)
[2024-10-01 12:18] LABS: Urine Bacteria None Seen /hpf (None Seen)
[2024-10-01 12:33] LABS: Basophils # (auto) 0 10 ^3/uL (0-0.2); Basophils % (auto) 0.5 % (0.0-2.0); Eosinophils # (auto) 0.1 10 ^3/uL (0-0.8); Eosinophils % (auto) 1.1 % (0.0-7.0); Hematocrit 38.8 % (36.0-46.0); Hemoglobin 13.1 g/dL (12.2-16.2); Lymphocytes % (auto) 21.1 % (10.0-50.0); Mean Corpuscular Hemoglobin 27.9 pg (28.0-32.0); Mean Corpuscular Hgb Conc. 33.8 g/dL (32.0-36.0); Mean Corpuscular Volume 82.4 fL (80.0-100.0); Monocytes # (auto) 0.6 10 ^3/uL (0-1.3); Neutrophils # (auto) 6.7 10 ^3/uL (1.6-8.6); Neutrophils % (auto) 71.3 % (37.0-80.0); Platelet Count (auto) 363 10^3/uL (140-450); Red Blood Cells 4.71 10^6/uL (4.0-5.20); Red Cell Distribution Width 15.5 % (11.8-14.3); White Blood Cell 9.4 10^3/uL (4.4-10.8)
[2024-10-01 12:35] LABS: Urine Blood Negative /uL (Negative); Urine Clarity Clear (Clear); Urine Color Light-Yellow (Yellow); Urine Protein, UAD Negative (Negative); Urine Specific Gravity 1.024 (1.001-1.035); Urine Squamous Epithelial Cell FEW /hpf (<5); Urine Urobilinogen Normal (Negative); Urine WBC 1 /HPF (0-5); Urine pH 5.5 (5.0-9.0)
[2024-10-01 12:35] LABS: Chloride 104 mmol/L (98-107); Sodium 140 mmol/L (136-145)
[2024-10-01 12:36] LABS: Anion Gap 9 (5-15); Carbon Dioxide 27 mmol/L (20-31)
[2024-10-01 12:41] LABS: BUN/Creatinine Ratio 22.5 (10.0-20.0); Blood Urea Nitrogen 18 mg/dL (9-23); Glucose 101 mg/dL (74-106)
--- NOTE | 2024-10-01 13:09 | DVH ---
CT CT AB PEL WO CON-NO ORAL OR IV INDICATION: left flank pain EXAM DATE: 10/01/2024 12:37 PM COMPARISON: CT CT AB PEL WO CON-NO ORAL OR IV on DOS: 05/14/24 RADIATION DOSE: CTDIvol: 26.11 mGy, DLP: 1658.22 mGy*cm PROCEDURE: Helical CT images were obtained of the abdomen and pelvis without IV contrast Sagittal and coronal reconstructions are provided. ORAL CONTRAST: None. ADDITIONAL IMAGES / REFORMATS: None All C T scans at this medical facility are performed using dose modulation techniques as appropriate to a p erformed exam including the following: Automated exposure control was utilized; adjustment of the MA and/or KV according to patient size; and use of iterative reconstruction technique. FINDINGS: LUNG BASE: Normal. LIVER: Mild hepatic steatosis. GALLBLADDER AND BILIARY TREE: Cholecystectomy clips are seen. No intra- or extrahepatic biliary ducta l dilation. PANCREAS: Normal. SPLEEN: Normal. BOWEL: There is moderate to severe colonic diverticulosis. Normal appendix. ADRENALS: Normal. KIDNEYS AND URETER: Normal. BLADDER: Normal. REPRODUCTIVE ORGANS: Normal. LYMPH NODES:No lymphadenopathy. PERITONEUM: No ascites or free air. No other fluid collection. Mild mid abdominal mesenteric fat stra nding, nonspecific. VESSELS: Scattered atherosclerotic calcifications are noted. RETROPERITONEUM: Normal. ABDOMINAL WALL: Normal. BONES: Scattered osseous degenerative changes are noted. IMPRESSION: No acute intraabdominal abnormality. moderate to severe colonic diverticulosis. Mild hepatic steatosis
[2024-10-01] MEDS: KETOROLAC TROMETH 30 MG/ML 1ML VIAL IV ONE (13:17)
[2024-10-01 14:58] VITALS: BP 142/89; PULSE 111; RESP 16; TEMP 98.7; O2SAT 97
== END 2024-10-01 15:02 | disposition home or self-care (01) ==
LOC: ER 11:48
DX: R10.9 Unspecified abdominal pain (principal); R30.0 Dysuria; E03.9 Hypothyroidism, unspecified; F41.9 Anxiety disorder, unspecified; F31.9 Bipolar disorder, unspecified; K57.30 Diverticulosis of large intestine without perforation or abscess without bleeding; Z79.899 Other long term (current) drug therapy; Z90.49 Acquired absence of other specified parts of digestive tract; Z79.890 Hormone replacement therapy; Z98.51 Tubal ligation status
CPT/HCPCS: 36415; 74176; 80048; 81001; 81025; 85025; 96361; 96374; 99285; J1885; J7040

== ENCOUNTER 2024-10-12 06:47 | Day surgery (SDC) | payer MEDICAID ==
[2024-10-09 10:51] LABS: Urine Bacteria None Seen /hpf (None Seen)
[2024-10-09 11:04] LABS: Basophils # (auto) 0.1 10 ^3/uL (0-0.2); Basophils % (auto) 0.7 % (0.0-2.0); Eosinophils # (auto) 0.2 10 ^3/uL (0-0.8); Eosinophils % (auto) 2.3 % (0.0-7.0); Hematocrit 38.1 % (36.0-46.0); Hemoglobin 12.8 g/dL (12.2-16.2); Lymphocytes # (auto) 1.9 10 ^3/uL (0.4-5.4); Lymphocytes % (auto) 24.6 % (10.0-50.0); Mean Corpuscular Hemoglobin 27.8 pg (28.0-32.0); Mean Corpuscular Hgb Conc. 33.7 g/dL (32.0-36.0); Mean Corpuscular Volume 82.4 fL (80.0-100.0); Monocytes # (auto) 0.5 10 ^3/uL (0-1.3); Monocytes % (auto) 5.7 % (0.0-12.0); Neutrophils # (auto) 5.3 10 ^3/uL (1.6-8.6); Neutrophils % (auto) 66.7 % (37.0-80.0); Nucleated Red Blood Cells % 0.1 %; Platelet Count (auto) 321 10^3/uL (140-450); Red Blood Cells 4.62 10^6/uL (4.0-5.20); White Blood Cell 7.9 10^3/uL (4.4-10.8)
[2024-10-09 11:12] LABS: Urine Blood 2+ /uL (Negative); Urine Clarity Clear (Clear); Urine Color Colorless (Yellow); Urine Protein, UAD Negative (Negative); Urine Squamous Epithelial Cell FEW /hpf (<5); Urine Urobilinogen Normal (Negative); Urine WBC 1 /HPF (0-5); Urine pH 5.5 (5.0-9.0)
[2024-10-09 11:20] LABS: INR 0.95 (0.9-1.15); Prothrombin Time 10.1 sec (9.3-11.8)
[2024-10-09 11:23] LABS: Alanine Aminotransferase 23 U/L (7-40); Albumin 4.5 g/dL (3.2-4.8); Alkaline Phosphatase 112 U/L (46-116); Anion Gap 7 (5-15); Aspartate Aminotransferase 13 U/L (13-40); BUN/Creatinine Ratio 16.3 (10.0-20.0); Blood Urea Nitrogen 13 mg/dL (9-23); Calcium 9.2 mg/dL (8.7-10.4); Carbon Dioxide 28 mmol/L (20-31); Chloride 107 mmol/L (98-107); Glucose 93 mg/dL (74-106); Potassium 4.5 mmol/L (3.5-5.1); Sodium 142 mmol/L (136-145); Total Protein 7.1 g/dL (5.7-8.2)
[2024-10-09 11:25] LABS: Bilirubin, Total 0.2 mg/dL (0.2-1.0)
[~2024-10-12] VITALS: Ht 175.3 cm; Wt 125.2 kg
[~2024-10-12 06:47] MED LIST changes: -ARIP20TA4 PO; +ARIP30TA PO; -DESV1TAB15 PO; +DESV50TA13 OR; +HYDR10SY18 PO; +LEVO200C3 PO; -LEVO200T7 PO; -LEVO500T91 PO; -MET500T PO; +METH30CA OR; +MIRA50TA OR; +OMEP20TA PO
[2024-10-12] MEDS ORDERED: PROPOFOL 10 MG/ML 20 ML IV ONE ×2 (07:24→08:17)
[2024-10-12] MEDS ORDERED: LIDOCAINE 2%HCL (LOCAL ANESTH.) INJ 10ml MDV ONE (07:25)
[2024-10-12 08:38] VITALS: PULSE 86; RESP 15; O2SAT 100
--- NOTE | 2024-10-12 08:39 | DVHHP2 ---
GI H&P Pre-Op Assessment Date: 10/12/24 Chief complaint: colon cancer screening, heartburn HPI: per clinic note Past medical history: per clinic note Past surgical history: per clinic note Family history: per clinic note Physical exam: General: NAD, AAOX3 HEENT: PERRL, no scleral icterus, normal hearing, gums without lesions or bleeding, oropharynx clear without erythema or exudate. Neck: Supple without enlargement of the thyroid, or lymphadenopathy. Chest: Normal size and shape, no tenderness, lung dior clear to auscultation and percussion, nonlabored breathing. Heart: RRR, no murmur Abdomen: non-distended, no tenderness to palpation, +BS, no hepatosplenomegaly Extremities: no edema Neurological: CN II-XII intact, sensation intact in all extremities, 5+ strength in all extremities Skin: No rashes, No jaundice Assessment: - colon cancer screening -heartburn Plan: - EGD - Colonoscopy - Risks (bleeding, infection, perforation, reaction to sedation medications and cardiopulmonary arrest) and benefit of the procedure were explained to patient. Patient agrees to undergo the procedure. MACK DAVALOS MD Oct 12, 2024 08:39
--- NOTE | 2024-10-12 08:40 | DVHOP2 ---
Operative Report DATE OF OPERATION: 10/12/24 PROCEDURE: Upper Endoscopy. PREOPERATIVE INDICATION: The patient is a 39 -year-old female undergoing endoscopy for heartburn. POSTOPERATIVE DIAGNOSES: 1. Normal EGD PROCEDURE PERFORMED BY: Umer Hopkins SCOPE: Olympus videoendoscope. ASA CLASS: 3 PREOPERATIVE MEDICATIONS: MAC with Gabriel SERVIN PROCEDURE IN DETAIL: After obtaining an informed consent, the patient was placed on left lateral decubitus position. The patient was then sedated with the above medications. A bite block was placed between her teeth. The endoscope was then passed through the oropharynx, into the esophagus, and through the stomach and pylorus up to the second and third part of the duodenum. The duodenum was normal in appearance. The stomach was normal in appearance. The GE junction was normal appearance at 40 cm. The esophagus was normal in appearance. The endoscope was then withdrawn. The patient tolerated the procedure well without difficulty. COMPLICATIONS : None SPECIMENS: None DISPOSITION: D/C to home PLAN: 1. Continue with omeprazole. UMER HOPKINS MD Oct 12, 2024 08:40
--- NOTE | 2024-10-12 08:41 | DVHOP2 ---
Operative Report DATE OF OPERATION: 10/12/24 PROCEDURE: Colonoscopy. PREOPERATIVE INDICATION: The patient is a 39 -year-old female undergoing colonoscopy for colon cancer screening. POSTOPERATIVE DIAGNOSES: 1. 1 cm polyp in the descending colon was removed with hot snare and retrieved. The polypectomy site was clipped prophylactically to prevent bleeding. 2. Diverticulosis in left colon. PROCEDURE PERFORMED BY: Umer Hopkins M.D. SCOPE: Olympus videocolonoscope. 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 She was then sedated with the above medications. A rectal examination was performed that was normal. The colonoscope was then passed through the anus into the rectosigmoid and through the descending, transverse, and ascending colon up to the cecum with visualization of the appendiceal orifice, base of the cecum and the ileocecal valve. A 1 cm polyp in the descending colon was removed with hot snare and retrieved. The polypectomy site was clipped prophylactically to prevent bleeding. There was diverticulosis in left colon. The colonoscope was then withdrawn. The patient tolerated the procedure well without difficulty. WITHDRAWAL TIME: 12 minutes QUALITY OF THE PREP: [place] Bowel Prep score: 5 COMPLICATIONS : None SPECIMENS: Colon polyp DISPOSITION: D/C to home PLAN: 1. Repeat colonoscopy base on biopsy result UMER HOPKINS MD Oct 12, 2024 08:41
--- NOTE | 2024-10-12 08:42 | DVHDS2 ---
Physician Discharge Progress N Final Diagnosis: Normal EGD Colon polyp, diverticulosis Operations or Procedures: Operations or Procedures EGD Colonoscopy with snare polypectomy and clipping. Condition on Discharge: Good Disposition: Home Discharge Instructions: Diet: Regular Activity: No Restrictions, As Tolerated Medications: Resume previous home medications Follow Up Care: Discharge Statement: "Patient was advised to return to the ER or call 911 if any headaches, dizziness, shortness of breath, chest pain, abdominal pain, bleeding, fevers, or worsening of medical condition. Patient was counseled about treatment plan, medications, possible side effects, patientverbalized understanding. All questions were answered to the best of my ability. This discharge took greater then 30 minutes in planning, reviewing documentation, counseling the patient, and discussing with other team members." MACK DAVALOS MD Oct 12, 2024 08:42
[2024-10-12 09:20] VITALS: BP 136/82; PULSE 83; RESP 15; O2SAT 97
== END 2024-10-12 09:25 | disposition home or self-care (01) ==
LOC: GI 06:47
PROVIDERS: ATTEND Internal Medicine Gastroenterology
DX: R19.5 Other fecal abnormalities (principal); K57.30 Diverticulosis of large intestine without perforation or abscess without bleeding; K63.5 Polyp of colon; D12.4 Benign neoplasm of descending colon; E03.9 Hypothyroidism, unspecified; F31.9 Bipolar disorder, unspecified; K21.9 Gastro-esophageal reflux disease without esophagitis; Z79.890 Hormone replacement therapy; Z98.890 Other specified postprocedural states
CPT/HCPCS: 36415; 43235; 45385; 80053; 81001; 84702; 85025; 85610; 85730; 88305; J2003; J2704; J7030

== ENCOUNTER 2024-12-09 18:24 | Emergency (ER) | payer MEDICAID ==
[~2024-12-09] VITALS: Ht 175.3 cm; Wt 127.3 kg
--- NOTE | 2024-12-09 19:42 | DVH ---
Exam: CT CT AB PEL WO CON-NO ORAL OR IV History: Bilateral flank pain Comparison Study: CT CT AB PEL WO CON-NO ORAL OR IV on DOS: 10/01/24, CT CT AB PEL WO CON-NO ORAL OR I V on DOS: 05/14/24 TECHNIQUE: Multidetector CT of the abdomen and pelvis was performed from lung bases to pubic symphysi s. Imaging was performed without IV contrast. Axial, coronal, and sagittal multiplanar reformats were obtained from the axial data set by the technologist. RADIATION DOSE: CTDI vol 27.6 mGy. DLP 1545.14 mGy.cm Findings: Limited evaluation of the solid organs in the absence of IV contrast. Liver: Unremarkable. Spleen: Unremarkable. Pancreas: Unremarkable. Gallbladder: Prior cholecystectomy. Adrenals: Unremarkable Kidneys: Unremarkable. Pelvic Viscera: Trace gas is seen within the urinary bladder, correlate for recent instrumentation. Vasculature: Unremarkable. Retroperitoneum: Shotty retroperitoneal nodes. No ascites. Bowel: Colonic diverticulosis without CT evidence of diverticulitis. No bowel obstruction. The append ix is normal. Musculoskeletal: Unremarkable. Soft tissues: Unremarkable Lungs: The lung bases are clear. Impression: 1. Trace gas within the urinary bladder, correlate for recent instrumentation. In the absence of rece nt instrumentation, a gas-forming infection cannot be entirely excluded. 2. Incidental findings as detailed.
[2024-12-09 19:44] LABS: Hematocrit 38.5 % (36.0-46.0); Hemoglobin 12.9 g/dL (12.2-16.2); Mean Corpuscular Hemoglobin 27.3 pg (28.0-32.0); Mean Corpuscular Volume 81.8 fL (80.0-100.0); Nucleated Red Blood Cells % 0.1 %
[2024-12-09 19:46] LABS: Urine Protein, UAD Negative (Negative)
[2024-12-09 19:53] LABS: Chloride 103 mmol/L (98-107)
[2024-12-09 19:54] LABS: Carbon Dioxide 28 mmol/L (20-31)
[2024-12-09 19:55] LABS: Calcium 9.4 mg/dL (8.7-10.4)
[2024-12-09 20:00] LABS: BUN/Creatinine Ratio 18.0 (10.0-20.0); Blood Urea Nitrogen 16 mg/dL (9-23); Glucose 81 mg/dL (74-106); Potassium 3.4 mmol/L (3.5-5.1)
[2024-12-09] MEDS: KETOROLAC TROMETH 60MG/2ML VIAL IM ONE (20:08)
[2024-12-09] MEDS: ONDANSETRON ODT 4 MG TAB PO ONE (20:09)
[2024-12-09 20:17] LABS: Anion Gap 9 (5-15); Sodium 140 mmol/L (136-145)
--- NOTE | 2024-12-09 20:17 | ED.PDOC ---
History of Present Illness HPI Comments 39 y/o F presents with c/c bilateral flank pain. Patient endorses on sudden, unprovoked, and atraumatic onset of symptoms, last night, that has been progressively worsening since, with associated nausea. Pain radiates to her abdomen. Denies any vomiting, fever, dysuria, or further associated symptoms. Vital signs were stable at arrival. Chief Complaint: Flank Pain Time Seen by MD: 18:45 Primary Care Provider: KLEBER Nassar Notes: Nurses Notes, Medications, Allergies Allergies: Coded Allergies: NO KNOWN ALLERGIES (Unverified , 05/14/24) Home Meds Active Scripts Levothyroxine Sodium (Levothyroxine Sodium) 50 Mcg Cap, 50 MCG PO QAM for 30 Days, #30 CAP 3 Refills Prov:TUNDE CALVILLO MD 05/16/24 Reported Medications Desvenlafaxine (DESVENLAFAXINE ER) 50 Mg Tab, 50 MG OR, TAB 10/09/24 Mirabegron Base (MYRBETRIQ) 50 Mg Tab, 50 MG OR, TAB 10/09/24 Hydroxyzine Hcl (Hydroxyzine Hcl) 10 Mg/5 Ml Syp, 10 MG PO, SYP 10/09/24 Omeprazole (Gnp Omeprazole) 20 Mg Tab, 40 MG PO DAILY, TAB 10/09/24 Aripiprazole (Abilify Mycite Maintenanc) 30 Mg Tab, 50 MG PO, TAB 10/09/24 Methylphenidate Hcl (METHYLPHENIDATE HCL CD) 30 Mg Cap, 36 MG OR DAILY, CAP 10/09/24 Levothyroxine Sodium (Levothyroxine Sodium) 200 Mcg Cap, 200 MCG PO, CAP 10/09/24 Methylphenidate Hcl (Concerta) 18 Mg Tab, 1 TAB PO DAILY, #30 TAB 05/15/24 Lamotrigine (Lamotrigine) 100 Mg Tab, 100 MG PO BID, TAB 05/15/24 Information Source: Patient Mode of Arrival: Ambulatory Severity: Moderate Timing: Hours Duration: Since onset Prehospital treatment: None Past Medical History PAST MEDICAL HISTORY: Anxiety, Depression, Thyroid Surgical History: Cholecystectomy, , Tubal Ligation Family History Family History: No family hx of Cancer, No family hx of DM, No family hx of Heart jacy Social History Smoker: Non-Smoker Alcohol: Denies ETOH Use Drugs: Denies Drug Use Lives In: Home Constitutional: denies: chills, diaphoresis, fatigue, fever, malaise, sweats, weakness, others EENTM: denies: blurred vision, double vision, ear bleeding, ear discharge, ear drainage, ear pain, ear ringing, eye pain, eye redness, hearing loss, mouth pain, mouth swelling, nasal discharge, nose bleeding, nose congestion, nose p ain, photophobia, tearing, throat pain, throat swelling, voice changes, others Respiratory: denies: cough, hemoptysis, orthopnea, SOB at rest, shortness of breath, SOB with excertion, stridor, wheezing, others Cardiovascular: denies: chest pain, dizzy spells, diaphoresis, Dyspnea on exertion, edema, irregular heart beat, left arm pain, lightheadedness, palpitations, PND, syncope, others Gastrointestinal: reports: nausea; denies: abdomen distended, abdominal pain, blood streaked bowels, constipated, diarrhea, dysphagia, difficulty swallowing, hematemesis, melena, poor appetite, poor fluid intake, rectal bleeding, rectal pain, vomiting, others Genitourinary: reports: flank pain; denies: abnormal vagina bleeding, burning, dyspareunia, dysuria, frequency, hematuria, incontinence, pain, , vagina discharge, urgency, others Neurological: denies: dizziness, fainting, headache, left sided numbness, left sided weakness, numbness, paresthesia, pre-existing deficit, right sided numbness, right sided weakness, seizure, speech problems, tingling, tremors, weakness, others Musculoskeletal: denies: back pain, gout, joint pain, joint swelling, muscle pain, muscle stiffness, neck pain, others Integumetry: denies: bruises, change in color, change in hair/nails, dryness, laceration, lesions, lumps, rash, wounds, others Allergic/Immunocompromised: denies: Difficulty Healing, Frequent Infections, Hives, Itching, others Hematologic/Lymphatic: denies: anemia, blood clots, easy bleeding, easy bruising, swollen glands, others Endocrine: denies: excessive hunger, excessive sweating, excessive thirst, excessive urination, flushing, intolerance to cold, intolerance to heat, unexplained weight gain, unexplained weight loss, others Psychiatric: denies: anxiety, bipolar disorder, depression, hopeless, panic disorder, schizophrenia, sleepless, suicidal, others All Other Systems: Reviewed and Negative (As per HPI) Physical Exam General Appearance: Moderate Distress (Hdok-jj-tckcaese distress due to flank pain concerns.), Obese HEENT: Normal ENT Inspection, Pharynx Normal, TMs Normal Neck: Full Range of Motion, Non-Tender, Normal, Normal Inspection Respiratory: Chest Non-Tender, Lungs Clear, No Accessory Muscle Use, No Respiratory Distress, Normal Breath Sounds Cardiovascular: No Edema, No JVD, No Murmur, No Gallop, Normal Peripheral Pulses, Regular Rate/Rhythm Breast Exam: Deferred Gastrointestinal: Other (Bilateral flank pain radiating towards the abdomen. No definitive CVA tenderness. Difficult to assess due to body habitus.) Genitalia: Deferred Pelvic: Deferred Rectal: Deferred Extremities: No calf tenderness, Normal capillary refill, Normal inspection, Normal range of motion, Non-tender, No pedal edema Neurologic: Alert, No Motor Deficits, Normal Affect, Normal Mood, No Sensory Deficits Cerebellar Function: Normal Reflexes: Normal Skin: Dry, Normal Color, Warm Lymphatic: No Adenopathy Was a procedure done? Was a procedure done?: No Differential Dx Considerations may include: nephrolithiasis, pyleonephritis, cystitis, PID, ovarian cysts, ovarian torsion, musculoskeletal pain, among others X-Ray, Labs, Meds, VS Vital Signs Date Time Temp Pulse Resp B/P (MAP) Pulse Ox O2 Delivery O2 Flow Rate FiO2 12/09/24 20:13 98.6 85 17 144/84 (104) 100 98.6 12/09/24 20:13 85 17 100 Room Air 12/09/24 18:26 98.1 96 18 148/90 96 98.1 Lab Test 12/09/24 19:24 12/09/24 18:29 Range/Units White Blood Count 8.7 4.4-10.8 10^3/uL Red Blood Count 4.71 4.0-5.20 10^6/uL Hemoglobin 12.9 12.2-16.2 g/dL Hematocrit 38.5 36.0-46.0 % Mean Corpuscular Volume 81.8 80.0-100.0 fL Mean Corpuscular Hemoglobin 27.3 L 28.0-32.0 pg Mean Corpuscular Hemoglobin Concent 33.4 32.0-36.0 g/dL Red Cell Distribution Width 15.7 H 11.8-14.3 % Platelet Count 364 140-450 10^3/uL Mean Platelet Volume 6.8 L 6.9-10.8 fL Neutrophils (%) (Auto) 61.2 37.0-80.0 % Lymphocytes (%) (Auto) 29.9 10.0-50.0 % Monocytes (%) (Auto) 7.4 0.0-12.0 % Eosinophils (%) (Auto) 0.9 0.0-7.0 % Basophils (%) (Auto) 0.6 0.0-2.0 % Neutrophils # (Auto) 5.3 1.6-8.6 10 ^3/uL Lymphocytes # (Auto) 2.6 0.4-5.4 10 ^3/uL Monocytes # (Auto) 0.6 0-1.3 10 ^3/uL Eosinophils # (Auto) 0.1 0-0.8 10 ^3/uL Basophils # (Auto) 0.1 0-0.2 10 ^3/uL Nucleated Red Blood Cells 0.1 % Sodium Level 140 136-145 mmol/L Potassium Level 3.4 L 3.5-5.1 mmol/L Chloride Level 103 98-107 mmol/L Carbon Dioxide Level 28 20-31 mmol/L Anion Gap 9 5-15 Blood Urea Nitrogen 16 9-23 mg/dL Creatinine 0.89 0.550-1.02 mg/dL Glomerular Filtration Rate Calc 84 >90 mL/min BUN/Creatinine Ratio 18.0 10.0-20.0 Serum Glucose 81 74-106 mg/dL Calcium Level 9.4 8.7-10.4 mg/dL Urine Color Yellow Yellow Urine Clarity Clear Clear Urine pH 6.0 5.0-9.0 Urine Specific [place] 1.024 1.001-1.035 Urine Protein Negative Negative Urine Ketones Negative Negative Urine Blood Negative Negative /uL Urine Nitrite Negative Negative Urine Bilirubin Negative Negative Urine Urobilinogen Normal Negative mg/dL Urine Leukocyte Esterase Negative Negative /uL Urine RBC 4 0 - 4 /hpf Urine Microscopic WBC 1 0-5 /HPF Urine Squamous Epithelial Cells Few <5 /hpf Urine Bacteria None seen None Seen /hpf Urine Glucose Normal Normal mg/dL Current Medications Medications (Trade) Dose Ordered Sig/Rohan Route Start Time Stop Time Status Last Admin Ondansetron HCl (Zofran Po) 4 mg ONCE ONCE PO 12/09/24 19:00 12/09/24 19:01 DC 12/09/24 20:09 Ketorolac Tromethamine (Toradol Injection) 30 mg ONCE ONCE IM 12/09/24 19:00 12/09/24 19:01 DC 12/09/24 20:08 [place] [id number] Ph: [phone] DIAGNOSTIC IMAGING Diagnostic Imaging Report : [id number] Signed PATIENT: FRANSICO HUYNH ACCT: [id number] UNIT: [id number] : 1985 LOC: ER ROOM / BED: / AGE / SEX: 39 / F ADM STATUS: REG ER SERVICE 121 ORDERING PHYSICIAN: KIMI LEOS PAC PROCEDURE(s): ABPL - CT AB PEL WO CON-NO ORAL OR IV REASON: Bilateral flank pain ORDER NUMBER(s): [id number], ACCESSION NUMBER(s): [id number] Exam: CT CT AB PEL WO CON-NO ORAL OR IV History: Bilateral flank pain Comparison Study: CT CT AB PEL WO CON-NO ORAL OR IV on DOS: 10/01/24, CT CT AB PEL WO CON-NO ORAL OR IV on DOS: 05/14/24 TECHNIQUE: Multidetector CT of the abdomen and pelvis was performed from lung bases to pubic symphysis. Imaging was performed without IV contrast. Axial, coronal, and sagittal multiplanar reformats were obtained from the axial data set by the technologist. RADIATION DOSE: CTDI vol 27.6 mGy. DLP 1545.14 mGy.cm Findings: Limited evaluation of the solid organs in the absence of IV contrast. Liver: Unremarkable. Spleen: Unremarkable. Pancreas: Unremarkable. Gallbladder: Prior cholecystectomy. Adrenals: Unremarkable Kidneys: Unremarkable. Pelvic Viscera: Trace gas is seen within the urinary bladder, correlate for recent instrumentation. Vasculature: Unremarkable. Retroperitoneum: Shotty retroperitoneal nodes. No ascites. Bowel: Colonic diverticulosis without CT evidence of diverticulitis. No bowel obstruction. The appendix is normal. Musculoskeletal: Unremarkable. Soft tissues: Unremarkable Lungs: The lung bases are clear. Impression: 1. Trace gas within the urinary bladder, correlate for recent instrumentation. In the absence of recent instrumentation, a gas-forming infection cannot be entirely excluded. 2. Incidental findings as detailed. ATED BY: MANJU LAGUNAS MD DICTATED DATE/TIME: 12/09/241938 SIGNED BY: MANJU LAGUNAS MD SIGNED DATE/TIME: 12/09/241938 CC: X-Ray, Labs, Meds, VS Comment All studies performed the ED were evaluated by me personally. Serum studies were unremarkable for any systemic concerns. Urinalysis was unremarkable for any urinary tract infection concerns or signs of blood loss due to kidney stones. CT of the abdomen and pelvis was unremarkable for any intra-abdominal concerns or kidney related issues. Patient appears to have musculoskeletal concerns. Advised patient that if her symptoms continue, follow up with the primary care provider. Time of 1ST Reevaluation: 21:03 Reevaluation 1ST: Improved Consultation: PCP Patient Education/Counseling: Diagnosis, Treatment, Need For Follow Up Family Education/Counseling: Diagnosis, Treatment, No Family Present SEPSIS Sepsis Screen Date sepsis recognized/suspect: Dec 09, 2024 Time Sepsis recognized/suspect: 1827 Recent Procedure: No On Antibiotic Therapy: No Respiratory Rate >20: No Heart Rate >90: No Temp<36 C (96.8 F) or >38.3 C: No SBP <90 or MAP <65 mmHG: No New Acute Mental Status Change: No Is the patient on CPAP, BIPAP,: No Physician Orders Ct Ab Pel Wo Con-No Oral Or Iv (12/09/24 18:53) Vital Signs Date Time Temp Pulse Resp B/P (MAP) Pulse Ox O2 Delivery O2 Flow Rate FiO2 12/09/24 20:13 98.6 85 17 144/84 (104) 100 98.6 12/09/24 20:13 85 17 100 Room Air 12/09/24 18:26 98.1 96 18 148/90 96 98.1 Laboratory Tests Test 12/09/24 19:24 White Blood Count 8.7 10^3/uL (4.4-10.8) Medications Medications Dose Ordered Sig/Rohan Route Start Time Stop Time Status Last Admin Dose Admin Ketorolac Tromethamine 30 mg ONCE ONCE IM 12/09/24 19:00 12/09/24 19:01 DC 12/09/24 20:08 Ondansetron HCl 4 mg ONCE ONCE PO 12/09/24 19:00 12/09/24 19:01 DC 12/09/24 20:09 Departure 1 Departure Time of Disposition: 21:03 Impression: Primary Impression: Musculoskeletal pain Disposition: HOME / SELF CARE / HOMELESS Condition: Stable Additional Instructions: Advised patient utilize pain medication as needed and additionally, if symptoms continue, patient will need to follow up with the primary care provider for continued evaluation and management. e-Prescriptions Ondansetron Odt 4MG Tab (ZOFRAN PO) 4 Mg Tb 4 MG PO Q6HP PRN, #15 TAB ODT TAB-DISSOLVE IN MOUTH, THEN SWALLOW Prov: KIMI LEOS PAC 12/09/24 Acetaminophen (Acetaminophen) 500 Mg Tab 500 MG PO Q4HP PRN, #30 TAB Prov: KIMI LEOS 12/09/24 Ibuprofen Micronized (Ibuprofen) 800 Mg Tab 800 MG PO Q8HP PRN, #20 TAB Prov: KIMI LEOS PAC 12/09/24 Discharged With: Self, Friend Critical Care Note Critical Care Time?: No Stability Stability form required: No Heart Score Heart Score: Heart Score Response (Comments) Value History N/A 0 EKG N/A 0 Age N/A 0 Risk Factors N/A 0 Troponin N/A 0 Total 0 I personally scribed for KIMI LEOS PAC ([email or web address]) on 12/09/24 at 20:17. Electronically submitted by Selwyn Bright ([email or web address]). KIMI LEOS PAC Dec 09, 2024 20:17
[2024-12-09] MEDS ORDERED: ACET500T58 PO (21:05)
[2024-12-09] MEDS ORDERED: ZOFR4T PO (21:05)
[2024-12-09] MEDS ORDERED: IBUP-1455 PO (21:05)
[2024-12-09 21:34] VITALS: BP 138/80; PULSE 87; RESP 16; TEMP 98.4; O2SAT 98
== END 2024-12-09 21:38 | disposition home or self-care (01) ==
LOC: EEVIPCON 18:24 → ER 18:24
DX: R10.9 Unspecified abdominal pain (principal); M79.18 Myalgia, other site; F41.9 Anxiety disorder, unspecified; F32.A Depression, unspecified; Z98.51 Tubal ligation status; Z79.899 Other long term (current) drug therapy; Z79.890 Hormone replacement therapy; Z90.49 Acquired absence of other specified parts of digestive tract; Z98.890 Other specified postprocedural states
CPT/HCPCS: 36415; 74176; 80048; 81001; 85025; 96372; 99285; J1885; Q0162

== ENCOUNTER 2025-05-04 15:07 | Inpatient (IN) | payer MEDICAID ==
[~2025-05-04] VITALS: Ht 175.3 cm; Wt 126.3 kg
[~2025-05-04 15:07] MED LIST changes: +ACET500T58 PO; +IBUP-1455 PO; +ZOFR4T PO
[2025-05-04 15:43] LABS: Hematocrit 37.7 % (36.0-46.0); Hemoglobin 12.6 g/dL (12.2-16.2); Mean Corpuscular Hemoglobin 27.7 pg (28.0-32.0); Mean Corpuscular Volume 82.7 fL (80.0-100.0); Nucleated Red Blood Cells % 0.0 %
[2025-05-04 15:53] LABS: Chloride 107 mmol/L (98-107); Potassium 3.9 mmol/L (3.5-5.1); Sodium 141 mmol/L (136-145)
[2025-05-04 15:54] LABS: Anion Gap 9 (5-15); Carbon Dioxide 25 mmol/L (20-31)
[2025-05-04 15:55] LABS: Calcium 8.4 mg/dL (8.7-10.4)
[2025-05-04 16:00] LABS: BUN/Creatinine Ratio 16.2 (10.0-20.0); Blood Urea Nitrogen 12 mg/dL (9-23); Glucose 100 mg/dL (74-106)
--- NOTE | 2025-05-04 16:03 | ED.PDOC ---
History of Present Illness HPI Comments This is 39-year old female with past medical history of diverticulosis with diverticulitis, devonte thyroiditis who presented to the ED with the chief complaint of left upper quadrant pain. She states she has had left upper quadrant pain since 2-3 days, now radiating to mid abdomen, which started as cramping in character to now stabbing pain. She has also had nausea with some episodes of loose stools, but denies noticing blood in the stools. She has also had dizziness and lightheadedness. She has been hospitalized 2-3 times in the past with the same complaints. She denies recent travel, sick contacts. Chief Complaint: Abdominal Pain Time Seen by MD: 15:44 Primary Care Provider: KLEBER Allergies: Coded Allergies: NO KNOWN ALLERGIES (Unverified , 05/14/24) Home Meds Active Scripts Ondansetron Odt 4MG Tab (ZOFRAN PO) 4 Mg Tb, 4 MG PO Q6HP PRN, #15 TAB ODT TAB-DISSOLVE IN MOUTH, THEN SWALLOW Prov:KIMI LEOS PAC 12/09/24 Acetaminophen (Acetaminophen) 500 Mg Tab, 500 MG PO Q4HP PRN, #30 TAB Prov:KIMI LEOS PAC 12/09/24 Ibuprofen Micronized (Ibuprofen) 800 Mg Tab, 800 MG PO Q8HP PRN, #20 TAB Prov:KIMI LEOS PAC 12/09/24 Levothyroxine Sodium (Levothyroxine Sodium) 50 Mcg Cap, 50 MCG PO QAM for 30 Days, #30 CAP 3 Refills Prov:TUNDE CALVILLO MD 05/16/24 Reported Medications Desvenlafaxine (DESVENLAFAXINE ER) 50 Mg Tab, 50 MG OR, TAB /25 Mirabegron Base (MYRBETRIQ) 50 Mg Tab, 50 MG OR, TAB //25 Hydroxyzine Hcl (Hydroxyzine Hcl) 10 Mg/5 Ml Syp, 10 MG PO, SYP 10/09/24 Omeprazole (Gnp Omeprazole) 20 Mg Tab, 40 MG PO DAILY, TAB /25 Aripiprazole (Abilify Mycite Maintenanc) 30 Mg Tab, 50 MG PO, TAB 25 Methylphenidate Hcl (METHYLPHENIDATE HCL CD) 30 Mg Cap, 36 MG OR DAILY, CAP 6/2/25 Levothyroxine Sodium (Levothyroxine Sodium) 200 Mcg Cap, 200 MCG PO, CAP 10/09/24 Methylphenidate Hcl (Concerta) 18 Mg Tab, 1 TAB PO DAILY, #30 TAB 05/15/24 Lamotrigine (Lamotrigine) 100 Mg Tab, 100 MG PO BID, TAB 05/15/24 Information Source: Patient Mode of Arrival: Ambulatory Severity: Moderate Timing: Days Duration: Since onset Prehospital treatment: None Past Medical History PAST MEDICAL HISTORY: Anxiety, Depression, Thyroid Surgical History: Cholecystectomy, , Tubal Ligation TIRE TRUCKER History: No Pertinent TIRE TRUCKER History Family History Family History: No family hx of Cancer, No family hx of DM, No family hx of Heart jacy Social History Smoker: Non-Smoker Alcohol: Denies ETOH Use Drugs: Denies Drug Use Lives In: Home Constitutional: denies: chills, diaphoresis, fatigue, fever, malaise, sweats, weakness, others EENTM: denies: blurred vision, double vision, ear bleeding, ear discharge, ear drainage, ear pain, ear ringing, eye pain, eye redness, hearing loss, mouth pain, mouth swelling, nasal discharge, nose bleeding, nose congestion, nose pain, photophobia, tearing, throat pain, throat swelling, voice changes, others Respiratory: denies: cough, hemoptysis, orthopnea, SOB at rest, shortness of breath, SOB with excertion, stridor, wheezing, others Cardiovascular: denies: chest pain, dizzy spells, diaphoresis, Dyspnea on exertion, edema, irregular heart beat, left arm pain, lightheadedness, palpitations, PND, syncope, others Gastrointestinal: reports: abdominal pain, diarrhea, nausea; denies: abdomen distended, blood streaked bowels, constipated, dysphagia, difficulty swallowing, hematemesis, melena, poor appetite, poor fluid intake, rectal bleeding, rectal pain, vomiting, others Genitourinary: denies: abnormal vagina bleeding, burning, dyspareunia, dysuria, flank pain, frequency, hematuria, incontinence, pain, , vagina discharge, urgency, others Neurological: reports: dizziness; denies: fainting, headache, left sided numbness, left sided weakness, numbness, paresthesia, pre-existing deficit, right sided numbness, right sided weakness, seizure, speech problems, tingling, tremors, weakness, others Musculoskeletal: denies: back pain, gout, joint pain, joint swelling, muscle pain, muscle stiffness, neck pain, others Integumetry: denies: bruises, change in color, change in hair/nails, dryness, laceration, lesions, lumps, rash, wounds, others Allergic/Immunocompromised: denies: Difficulty Healing, Frequent Infections, Hives, Itching, others Hematologic/Lymphatic: denies: anemia, blood clots, easy bleeding, easy bruising, swollen glands, others Endocrine: denies: excessive hunger, excessive sweating, excessive thirst, excessive urination, flushing, intolerance to cold, intolerance to heat, unexplained weight gain, unexplained weight loss, others Psychiatric: denies: anxiety, bipolar disorder, depression, hopeless, panic di sorder, schizophrenia, sleepless, suicidal, others Physical Exam General Appearance: Obese HEENT: Normal ENT Inspection Neck: Non-Tender, Normal Inspection Respiratory: Chest Non-Tender, Lungs Clear, No Respiratory Distress, Normal Breath Sounds Cardiovascular: No Edema, No Murmur, Normal Peripheral Pulses, Regular Rate/Rhythm Breast Exam: Normal Gastrointestinal: LUQ, No Pulsatile Mass, Normal Bowel Sounds, Tenderness Genitalia: Deferred Pelvic: Deferred Rectal: Deferred Extremities: Normal capillary refill, Normal inspection, Normal range of motion, Non-tender, No pedal edema Neurologic: Alert, No Motor Deficits, Normal Affect, Normal Mood, No Sensory Deficits Cerebellar Function: Normal Reflexes: Normal Skin: Normal Color Lymphatic: No Adenopathy Was a procedure done? Was a procedure done?: No Differential Dx Considerations may include: acute diverticulitis, acute gastroenteritis X-Ray, Labs, Meds, VS Vital Signs Date Time Temp Pulse Resp B/P (MAP) Pulse Ox O2 Delivery O2 Flow Rate FiO2 05/04/25 16:45 98.3 76 17 137/88 (104) 98 98.3 05/04/25 15:09 98.9 113 20 136/87 97 98.9 Lab Test 05/04/25 16:49 05/04/25 15:25 Range/Units Urine Color Pending Urine Clarity Pending Urine pH Pending Urine Specific [place] Pending Urine Protein Pending Urine Ketones Pending Urine Blood Pending Urine Nitrite Pending Urine Bilirubin Pending Urine Urobilinogen Pending Urine Leukocyte Esterase Pending Urine RBC Pending Urine Microscopic WBC Pending Urine Squamous Epithelial Cells Pending Urine Bacteria Pending Urine Glucose Pending White Blood Count 8.3 4.4-10.8 10^3/uL Red Blood Count 4.55 4.0-5.20 10^6/uL Hemoglobin 12.6 12.2-16.2 g/dL Hematocrit 37.7 36.0-46.0 % Mean Corpuscular Volume 82.7 80.0-100.0 fL Mean Corpuscular Hemoglobin 27.7 L 28.0-32.0 pg Mean Corpuscular Hemoglobin Concent 33.5 32.0-36.0 g/dL Red Cell Distribution Width 16.8 H 11.8-14.3 % Platelet Count 359 140-450 10^3/uL Mean Platelet Volume 6.6 L 6.9-10.8 fL Neutrophils (%) (Auto) 67.4 37.0-80.0 % Lymphocytes (%) (Auto) 25.0 10.0-50.0 % Monocytes (%) (Auto) 6.0 0.0-12.0 % Eosinophils (%) (Auto) 1.1 0.0-7.0 % Basophils (%) (Auto) 0.5 0.0-2.0 % Neutrophils # (Auto) 5.6 1.6-8.6 10 ^3/uL Lymphocytes # (Auto) 2.1 0.4-5.4 10 ^3/uL Monocytes # (Auto) 0.5 0-1.3 10 ^3/uL Eosinophils # (Auto) 0.1 0-0.8 10 ^3/uL Basophils # (Auto) 0 0-0.2 10 ^3/uL Nucleated Red Blood Cells 0.0 % Sodium Level 141 136-145 mmol/L Potassium Level 3.9 3.5-5.1 mmol/L Chloride Level 107 98-107 mmol/L Carbon Dioxide Level 25 20-31 mmol/L Anion Gap 9 5-15 Blood Urea Nitrogen 12 9-23 mg/dL Creatinine 0.74 0.550-1.02 mg/dL Glomerular Filtration Rate Calc 105 >90 mL/min BUN/Creatinine Ratio 16.2 10.0-20.0 Serum Glucose 100 74-106 mg/dL Calcium Level 8.4 L 8.7-10.4 mg/dL Lipase 46 12-53 U/L Thyroid Stimulating Hormone (TSH) 2.19 0.55-4.78 uIU/mL CT scan of the abdomen reviewed does show colitis. Was given Rocephin. Was given Flagyl. Vitals stable. Continue monitoring. Time of 1ST Reevaluation: 16:10 Reevaluation 1ST: Unchanged Patient Education/Counseling: Diagnosis, Treatment, Prognosis Family Education/Counseling: No Family Present SEPSIS Sepsis Screen Date sepsis recognized/suspect: May 04, 2025 Time Sepsis recognized/suspect: 1514 Recent Procedure: No On Antibiotic Therapy: No Respiratory Rate >20: No Heart Rate >90: Yes Temp<36 C (96.8 F) or >38.3 C: No SBP <90 or MAP <65 mmHG: No New Acute Mental Status Change: No Is the patient on CPAP, BIPAP,: No Physician Orders Urinalysis (05/04/25 15:12) Npo (Nothing By Mouth) Diet (05/04/25 Dinner) Ct Ab Pel Wo Con-No Oral Or Iv (05/04/25 16:18) Vital Signs Date Time Temp Pulse Resp B/P (MAP) Pulse Ox O2 Delivery O2 Flow Rate FiO2 05/04/25 16:45 98.3 76 17 137/88 (104) 98 98.3 05/04/25 15:09 98.9 113 20 136/87 97 98.9 Laboratory Tests Test 05/04/25 15:25 White Blood Count 8.3 10^3/uL (4.4-10.8) Departure 1 Departure Time of Disposition: 16:10 Impression: Primary Impression: Intractable abdominal pain Additional Impressions: Acute pancreatitis Qualified Codes: K85.90 - Acute pancreatitis without necrosis or infection, unspecified Non-specific colitis Disposition: ADMITTED INPATIENT Admit to: Med Surg Condition: Guarded Critical Care Note Critical Care Time?: No Stability Stability form required: No BRAD CARSON RESIDENT May 04, 2025 16:03 LILIANA BARKSDALE MD May 04, 2025 17:15
--- NOTE | 2025-05-04 16:59 | DVH ---
EXAM: CT CT AB PEL WO CON-NO ORAL OR IV History: rule out diverticultis Comparison Study: CT CT AB PEL WO CON-NO ORAL OR IV on DOS: 12/09/24, CT CT AB PEL WO CON-NO ORAL OR IV on DOS: 10/01/24, CT CT AB PEL WO CON-NO ORAL OR IV on DOS: 05/14/24 TECHNIQUE: Multidetector CT of the abdomen and pelvis without IV contrast. Axial, coronal and sagittal multiplanar reformats were obtained from the axial data set by the technologist. Radiation Dose Information: CT Dose: CTDI volume is 25.15 mGy. Dose-length product is 1307.06 mGy*cm FINDINGS: The lung bases are clear. Partially visualized heart is unremarkable. Mild hepatosplenomegaly. Otherwise, liver, spleen, pancreas and adrenal glands are unremarkable. Status Post cholecystectomy. Kidneys, ureters and urinary bladder are unremarkable. Uterus and adnexa are unremarkable. Stomach is unremarkable. Small bowel loops are unremarkable. Appendix is unremarkable. Mild wall thickening of the descending colon. Distal transverse colon, Descending colon and Sigmoid diverticulosis with Minimal Fat stranding adjacent to The sigmoid. No evidence of intraperitoneal free air or free fluid. No evidence of aortic aneurysm. No significant lymphadenopathy. Tiny fat containing umbilical hernia. The soft tissues are unremarkable. No evidence of acute osseous abnormalities. IMPRESSION: Colitis involving the descending colon. Transverse colon, Descending colon and Sigmoid diverticulosis with minimal sigmoid diverticulitis. Status post cholecystectomy.
[2025-05-04 17:17] LABS: Urine Protein, UAD Negative (Negative)
[2025-05-04] MEDS ORDERED: ONDANSETRON HCL 4 MG/2 ML VIAL IV PRN (22:00)
[2025-05-04] MEDS: ACETAMINOPHEN 325 MG TAB PO SCH (22:15)
[2025-05-04] MEDS: KETOROLAC TROMETH 30 MG/ML 1ML VIAL IV PRN (22:41)
[2025-05-04] MEDS: SODIUM CHLORIDE 0.9% 1,000 ML IV ONE (22:41)
--- NOTE | 2025-05-04 23:25 | DVHHPRES ---
History of Present Illness Resident Creating Document: ANAY MARIE RESIDENT History of Present Illness Janet Matthew is a 39-year old female with past medical history of diverticulitis, overactive bladder, Juancarlos's, endometriosis, bipolar disorder, anxiety, depression, GERD who presented to the hospital with complaints of abdominal pain and diarrhea since 3 days. She also complains of associated fever and nausea. She rates the abdominal pain 8 on 10 in intensity, dull, continuous, radiating to the front of the abdomen. She reports of 3-4 episodes of diarrhea yesterday. Patient states that she has a history of diverticulitis, and it recurs when she eats a lot of sugar which she did during [place]. Patient had a colonoscopy in November when diverticulitis was diagnosed. PMHx:diverticulitis, overactive bladder, Juancarlos's, endometriosis, bipolar disorder, anxiety, depression, GERD PSHx: Cholecystectomy Family history: rheumatoid arthritis in aunt Social history: denies smoking, alcohol, illicit drug use. Lives with family in [facility] medication: levothyroxine, lamotrigine, Abilify, desvenlafaxine, methylphenidate Allergic history: no known allergies Review of Systems Review of Systems General: patient denies fever, fatigue, weaknes, sweating, any recent changes in appetite and weight HEENT: No headaches, visiual changes, hearing loss, tinnitus, nasal congestion and discharge, and sore throat. Cardiovascular: Denies chest pain, palpitations, dyspnea on exertion, orthopnea, or claudication. Respiratory: No cough, and wheezing. Gastrointestinal: Complaints of abdominal pain and diarrhea Genitourinary: No dysuria, hematuria, discharge, frequency, urgency, nocturia, incontinence, and urinary retention. Endocrine: No heat or cold intolerance, polydipsia, polyuria, and polyphagia. Neurological: No dizziness, extremity weakness and numbness, tremors, gait disturbance, seizures, and memory impairment. Psychiatric: Denies depression, anxiety,or insomnia. Musculoskeletal: Denies neck pain, stiffness and swelling, back pain, muscle weakness, joint pain, stiffness, swelling, or limited range of motion. Skin: No rashes, itching, skin lesion, changes in hair, nail, skin texture and breast. Hematologic/Lymphatic: Denies easy bruising, bleeding tendencies, or lymph node enlargement. Allergies: Coded Allergies: NO KNOWN ALLERGIES (Unverified , 05/14/24) Medications Current Medications Medications Dose Ordered Sig/Rohan Route Start Time Stop Time Status Last Admin Dose Admin Ondansetron HCl 4 mg Q4HP PRN IV 05/04/25 22:00 Ceftriaxone Sodium 50 ml @ 100 mls/hr Q24H IV 05/05/25 21:00 Metronidazole 100 ml @ 100 mls/hr Q8HR IV 05/05/25 06:00 Acetaminophen 650 mg Q6HR PO 05/04/25 22:15 Ketorolac Tromethamine 15 mg Q6HPRN PRN IV 05/04/25 22:15 05/09/25 22:14 05/04/25 22:41 15 MG Lamotrigine 100 mg Q12HR PO 05/05/25 10:00 UNV Patient Own Medication 1 DAILY PO 05/05/25 10:00 UNV Exam Vital Signs Vital Signs Date Time Temp Pulse Resp B/P (MAP) Pulse Ox O2 Delivery O2 Flow Rate FiO2 05/04/25 22:31 99.4 94 18 132/80 (97) 97 99.4 Exam General Appearance: Alert, Oriented X3, Cooperative, No acute distress HEENT: Atraumatic, PERRLA, EOMI, Mucous membrane moist/pink Respiratory: Clear to auscultation, Normal air movement Cardiovascular: Regular rate, Normal S1, Normal S2, No murmurs, no chest wall tenderness Abdominal: diffuse abdominal tenderness present Extremities: No clubbing, No cyanosis, No edema, Normal pulses, No tenderness/swelling Skin: No rashes, No breakdown, No significant lesion Neuro: Normal gait, Normal speech, Strength at 5/5 X4 ext, Normal tone, Sensation intact, Cranial nerves 3-12 NL, Reflexes 2+ Psych/Mental Status: Mental status NL, Mood NL Labs/Xrays Labs Test 05/04/25 16:49 05/04/25 15:25 Range/Units Urine Color Yellow Yellow Urine Clarity Clear Clear Urine pH 6.5 5.0-9.0 Urine Specific [place] 1.024 1.001-1.035 Urine Protein Negative Negative Urine Ketones Negative Negative Urine Blood Negative Negative /uL Urine Nitrite Negative Negative Urine Bilirubin Negative Negative Urine Urobilinogen Normal Negative mg/dL Urine Leukocyte Esterase 1+ Negative /uL Urine RBC 3 0 - 4 /hpf Urine Microscopic WBC 1 0-5 /HPF Urine Squamous Epithelial Cells Few <5 /hpf Urine Bacteria None seen None Seen /hpf Urine Glucose Normal Normal mg/dL White Blood Count 8.3 4.4-10.8 10^3/uL Red Blood Count 4.55 4.0-5.20 10^6/uL Hemoglobin 12.6 12.2-16.2 g/dL Hematocrit 37.7 36.0-46.0 % Mean Corpuscular Volume 82.7 80.0-100.0 fL Mean Corpuscular Hemoglobin 27.7 L 28.0-32.0 pg Mean Corpuscular Hemoglobin Concent 33.5 32.0-36.0 g/dL Red Cell Distribution Width 16.8 H 11.8-14.3 % Platelet Count 359 140-450 10^3/uL Mean Platelet Volume 6.6 L 6.9-10.8 fL Neutrophils (%) (Auto) 67.4 37.0-80.0 % Lymphocytes (%) (Auto) 25.0 10.0-50.0 % Monocytes (%) (Auto) 6.0 0.0-12.0 % Eosinophils (%) (Auto) 1.1 0.0-7.0 % Basophils (%) (Auto) 0.5 0.0-2.0 % Neutrophils # (Auto) 5.6 1.6-8.6 10 ^3/uL Lymphocytes # (Auto) 2.1 0.4-5.4 10 ^3/uL Monocytes # (Auto) 0.5 0-1.3 10 ^3/uL Eosinophils # (Auto) 0.1 0-0.8 10 ^3/uL Basophils # (Auto) 0 0-0.2 10 ^3/uL Nucleated Red Blood Cells 0.0 % Erythrocyte Sedimentation Rate 22 H 0-20 mm/hr Sodium Level 141 136-145 mmol/L Potassium Level 3.9 3.5-5.1 mmol/L Chloride Level 107 98-107 mmol/L Carbon Dioxide Level 25 20-31 mmol/L Anion Gap 9 5-15 Blood Urea Nitrogen 12 9-23 mg/dL Creatinine 0.74 0.550-1.02 mg/dL Glomerular Filtration Rate Calc 105 >90 mL/min BUN/Creatinine Ratio 16.2 10.0-20.0 Serum Glucose 100 74-106 mg/dL Calcium Level 8.4 L 8.7-10.4 mg/dL C-Reactive Protein High Sensitivity 0.61 <1.0 mg/dL Lipase 46 12-53 U/L Thyroid Stimulating Hormone (TSH) 2.19 0.55-4.78 uIU/mL SEPSIS Sepsis Screen Date sepsis recognized/suspect: May 04, 2025 Time Sepsis recognized/suspect: 1829 Recent Procedure: No On Antibiotic Therapy: Yes Respiratory Rate >20: No Heart Rate >90: Yes Temp<36 C (96.8 F) or >38.3 C: No SBP <90 or MAP <65 mmHG: No New Acute Mental Status Change: No Is the patient on CPAP, BIPAP,: No Physician Orders Ct Ab Pel Wo Con-No Oral Or Iv (05/04/25 16:18) Admit (05/04/25 21:51) Allergies (05/04/25 21:51) Code Status (05/04/25 21:51) Ondansetron Hcl (Zofran) (05/04/25 22:00) Complete Blood Count (05/05/25 04:00) Comprehensive Metabolic Panel (05/05/25 04:00) Condition: Fair (05/04/25 21:51) Clear Liq Diet (05/05/25 Breakfast) Stool Occult Blood (05/04/25 21:57) Ceftriaxone 1gm/50ml (Rocephin) (05/05/25 21:00) Stool Wbc (05/04/25 21:57) Clostridium Difficile Toxin (05/04/25 21:57) Acetaminophen Tablet (Tylenol Tablet) (05/04/25 22:15) Ketorolac Injection (Toradol Injection) (05/04/25 22:15) Metronidazole 500mg/100ml (Flagyl 500mg/ (05/05/25 06:00) Sodium Chloride 0.9% (05/04/25 22:30) Ova & Parasite Exam (05/04/25 22:37) Lamotrigine Tablet (Lamictal Tablet) (05/05/25 10:00) Patients Own Medication (05/05/25 10:00) Patients Own Medication (05/05/25 10:00) Patients Own Medication (05/05/25 10:00) Vital Signs Date Time Temp Pulse Resp B/P (MAP) Pulse Ox O2 Delivery O2 Flow Rate FiO2 05/04/25 22:31 99.4 94 18 132/80 (97) 97 99.4 05/04/25 22:31 99.4 94 18 132/80 (97) 97 99.4 05/04/25 20:14 98.5 105 18 131/92 (105) 95 98.5 05/04/25 18:25 98.6 108 16 146/89 (108) 97 98.6 05/04/25 16:45 98.3 76 17 137/88 (104) 98 98.3 Laboratory Tests Test 05/04/25 15:25 White Blood Count 8.3 10^3/uL (4.4-10.8) Medications Medications Dose Ordered Sig/Rohan Route Start Time Stop Time Status Last Admin Dose Admin Ceftriaxone Sodium 50 ml @ 100 mls/hr ONCE ONCE IV 05/04/25 17:15 05/04/25 17:44 DC 05/04/25 18:09 100 MLS/HR Ketorolac Tromethamine 15 mg Q6HPRN PRN IV 05/04/25 22:15 05/09/25 22:14 05/04/25 22:41 15 MG Metronidazole 100 ml @ 100 mls/hr ONCE ONCE IV 05/04/25 17:15 05/04/25 22:01 DC 05/04/25 18:09 100 MLS/HR Sodium Chloride 1,000 ml @ 1,000 mls/hr Q1H ONCE IV 05/04/25 22:30 05/04/25 23:29 05/04/25 22:41 1,000 MLS/HR Assessment/Plan Assessment/Plan Assessment and plan Colitis, likely infectious Sigmoid diverticulitis IV fluids IV Ceftriaxone Flagyl Tylenol, ketorolac CT abdomen Stool occult blood, stool WBC C difficile Clear liquid diet ESR, CRP Chronic Juancarlos's thyroiditis Continue levothyroxine Bipolar disorder Anxiety depression Continue lamotrigine and Abilify Continue desvenlafaxine History of endometriosis Follow up with PCP on discharge PUD prophylaxis: protonix 40mg DVT prophylaxis: ambulatory Barriers to discharge: Medical diagnosis and management in progress. Patient lives with family. Independent for ADL. PCP: Dr. Bui Specialist Relevent To Admission: none Case discussed with Dr. Saldana. Code Status: Full Code. Complex patient care discussion needed. Spend total 35 minutes for bedside assessment, case discussion and management. Plan discussed with: Patient My Orders Orders - ANAY MARIE Procedure Category Date Status Time Admit ADMIT 05/04/25 Transmitted 21:51 Allergies DOLLY 05/04/25 In Process 21:51 Code Status CODE 05/04/25 Transmitted 21:51 Ondansetron Hcl PHA 05/04/25 In Process (Zofran) 22:00 Complete Blood Count LAB 05/05/25 Verified 04:00 Comprehensive LAB 05/05/25 Verified Metabolic Panel 04:00 Condition: Fair DOLLY 05/04/25 In Process 21:51 Clear Liq Diet DIET 05/05/25 Transmitted Breakfast Stool Occult Blood LAB 05/04/25 Logged 21:57 Ceftriaxone 1gm/50ml PHA 05/05/25 In Process (Rocephin) 21:00 Stool Wbc LAB 05/04/25 Logged 21:57 Clostridium Difficile KELLY 05/04/25 Logged Toxin 21:57 Acetaminophen Tablet PHA 05/04/25 In Process (Tylenol Tablet) 22:15 Ketorolac Injection PHA 05/04/25 In Process (Toradol Injection) 22:15 Metronidazole PHA 05/05/25 In Process 500mg/100ml (Flagyl 06:00 Sodium Chloride 0.9% PHA 05/04/25 In Process 22:30 Ova & Parasite Exam KELLY 05/04/25 Logged 22:37 Lamotrigine Tablet PHA 05/05/25 In Process (Lamictal Tablet) 10:00 Patients Own PHA 05/05/25 Pending Medication 10:00 Patients Own PHA 05/05/25 Verified Medication 10:00 Patients Own PHA 05/05/25 Verified Medication 10:00 Visit Coding STANDARD RES Billing Provider: CHRISTIN SALDANA MD Date of Service if different f: May 04, 2025 Common Visit Codes: [id number] INP/OBS CARE (HIGH) Secondary Visit Codes: [id number] CARE PLAN 30 MINUTES ANAY MARIE May 04, 2025 23:25
[2025-05-05] VITALS (8 sets, daily range): BP systolic 126–148; BP diastolic 70–88; PULSE 72–93; RESP 16–18; TEMP 97.9–98.5; O2SAT 94–98
[2025-05-05 03:44] LABS: Hematocrit 37.3 % (36.0-46.0); Hemoglobin 12.4 g/dL (12.2-16.2); Mean Corpuscular Hemoglobin 27.7 pg (28.0-32.0); Mean Corpuscular Volume 83.6 fL (80.0-100.0); Nucleated Red Blood Cells % 0.1 %
[2025-05-05 03:53] LABS: Alanine Aminotransferase 22 U/L (7-40); Albumin 4.4 g/dL (3.2-4.8); Alkaline Phosphatase 100 U/L (46-116); Anion Gap 10 (5-15); BUN/Creatinine Ratio 21.5 (10.0-20.0); Bilirubin, Total 0.3 mg/dL (0.2-1.0); Blood Urea Nitrogen 14 mg/dL (9-23); Carbon Dioxide 24 mmol/L (20-31); Chloride 106 mmol/L (98-107); Glucose 98 mg/dL (74-106); Potassium 4.0 mmol/L (3.5-5.1); Sodium 140 mmol/L (136-145); Total Protein 7.2 g/dL (5.7-8.2)
[2025-05-05 04:02] LABS: Calcium 8.7 mg/dL (8.7-10.4)
[2025-05-05] MEDS: PANTOPRAZOLE 40 MG TAB PO SCH (05:47)
[2025-05-05] MEDS: lamoTRIgine 100 MG TAB PO SCH (10:30)
--- NOTE | 2025-05-05 18:22 | DVHPN2 ---
Reviewed: H&P Changes from previous H/P or p: No Changes General: Per HPI Objective Vitals Vital Signs Date Time Temp Pulse Resp B/P (MAP) Pulse Ox O2 Delivery O2 Flow Rate FiO2 05/05/25 17:30 98.3 84 16 135/88 (104) 96 98.3 05/05/25 09:32 Room Air* 0 21 Intake/Output Intake and Output 05/05/25 07:00 Intake Total 1150 ml Balance 1150 ml IV Total 1150 ml Exam General Appearance: Alert, Oriented X3, Cooperative, No acute distress HEENT: Atraumatic, PERRLA, EOMI, Mucous membrane moist/pink Respiratory: Clear to auscultation, Normal air movement Cardiovascular: Regular rate, Normal S1, Normal S2, No murmurs, no chest wall tenderness Abdominal: diffuse abdominal tenderness present Extremities: No clubbing, No cyanosis, No edema, Normal pulses, No tenderness/swelling Skin: No rashes, No breakdown, No significant lesion Neuro: Normal gait, Normal speech, Strength at 5/5 X4 ext, Normal tone, Sensation intact, Cranial nerves 3-12 NL, Reflexes 2+ Psych/Mental Status: Mental status NL, Mood NL Medications Current Medications Medications Dose Ordered Sig/Rohan Route Start Time Stop Time Status Last Admin Dose Admin Ondansetron HCl 4 mg Q4HP PRN IV 05/04/25 22:00 Ceftriaxone Sodium 50 ml @ 100 mls/hr Q24H IV 05/05/25 21:00 Metronidazole 100 ml @ 100 mls/hr Q8HR IV 05/05/25 06:00 05/05/25 13:16 100 MLS/HR Acetaminophen 650 mg Q6HR PO 05/04/25 22:15 05/05/25 17:23 650 MG Ketorolac Tromethamine 15 mg Q6HPRN PRN IV 05/04/25 22:15 05/09/25 22:14 05/05/25 13:16 15 MG Lamotrigine 100 mg Q12HR PO 05/05/25 10:00 05/05/25 10:30 100 MG Patient Own Medication 1 HS PO 05/05/25 22:00 Patient Own Medication 1 DAILY PO 05/05/25 10:00 Patient Own Medication 1 BID PO 05/05/25 10:00 Levothyroxine Sodium 200 mcg QAM@0600 PO 05/06/25 06:00 Levothyroxine Sodium 50 mcg QAM@0600 PO 05/06/25 06:00 Pantoprazole Sodium 40 mg DAILY IV 05/06/25 10:00 Laboratory Results Laboratory Tests 05/05/25 02:36 Chemistry Test 05/05/25 02:36 Albumin 4.4 g/dL (3.2-4.8) Calcium Level 8.7 mg/dL (8.7-10.4) Total Protein 7.2 g/dL (5.7-8.2) LFT Test 05/05/25 02:36 Alanine Aminotransferase (ALT) 22 U/L (7-40) Alkaline Phosphatase 100 U/L (46-116) Aspartate Amino Transferase (AST) 23 U/L (13-40) Total Bilirubin 0.3 mg/dL (0.2-1.0) Urinalysis Test 05/04/25 16:49 Urine Color Yellow (Yellow) Urine Clarity Clear (Clear) Urine pH 6.5 (5.0-9.0) Urine Specific [place] 1.024 (1.001-1.035) Urine Protein Negative (Negative) Urine Ketones Negative (Negative) Urine Blood Negative /uL (Negative) Urine Nitrite Negative (Negative) Urine Bilirubin Negative (Negative) Urine Urobilinogen Normal mg/dL (Negative) Urine Leukocyte Esterase 1+ /uL (Negative) Urine RBC 3 /hpf (0 - 4) Urine Microscopic WBC 1 /HPF (0-5) Urine Squamous Epithelial Cells Few /hpf (<5) Urine Bacteria None seen /hpf (None Seen) Urine Glucose Normal mg/dL (Normal) Microbiology Microbiology Date/Time Source Procedure Growth Status 05/05/25 08:27 Stool Clostridium difficile Toxin Assay - Final Complete Labs and/or images reviewed: Labs reviewed by me, Image(s) reviewed by me Assessment/Plan Assessment/Plan Vipul Janet is a 39-year old female with past medical history of diverticulitis, overactive bladder, Juancarlos's, endometriosis, bipolar disorder, anxiety, depression, GERD who presented to the hospital with complaints of abdominal pain and diarrhea since 3 days. She also complains of associated fever and nausea. She rates the abdominal pain 8 on 10 in intensity, dull, continuous, radiating to the front of the abdomen. She reports of 3-4 episodes of diarrhea yesterday. Patient states that she has a history of diverticulitis, and it recurs when she eats a lot of sugar which she did during [place]. Patient had a colonoscopy in November when diverticulitis was diagnosed. Diagnosis: Colitis, likely infectious Sigmoid diverticulitis Chronic Juancarlos's thyroiditis Bipolar disorder Anxiety depression History of endometriosis Plan: IV fluids IV Ceftriaxone Flagyl Tylenol, ketorolac CT abdomen Stool occult blood, stool WBC C difficile Clear liquid diet ESR, CRP Continue levothyroxine Continue lamotrigine and Abilify Continue desvenlafaxine PUD prophylaxis: protonix 40mg DVT prophylaxis: ambulatory Barriers to discharge: Medical diagnosis and management in progress. Patient lives with family. Independent for ADL. PCP: Dr. Bui Specialist Relevent To Admission: none Med surge Full code Plan discussed with: Patient My Orders Orders - FRED JEAN MD Procedure Category Date Status Time Levothyroxine Tablet PHA 05/06/25 In Process (Synthroid Tablet) 06:00 Levothyroxine Tablet PHA 05/06/25 In Process (Synthroid Tablet) 06:00 Pantoprazole PHA 05/06/25 In Process (Protonix) 10:00 Date of Service: May 05, 2025 Billing Provider: FRED JEAN MD Common Visit Codes: [id number] INP/OBS CARE(HIGH) FRED JEAN MD May 05, 2025 18:22
[2025-05-06 01:00] VITALS: BP 115/77; PULSE 108; RESP 17; TEMP 97.5; O2SAT 97
[2025-05-06 05:17] LABS: Hematocrit 35.5 % (36.0-46.0); Hemoglobin 11.8 g/dL (12.2-16.2); Mean Corpuscular Hemoglobin 27.8 pg (28.0-32.0); Mean Corpuscular Volume 83.4 fL (80.0-100.0); Nucleated Red Blood Cells % 0.1 %
[2025-05-06 05:38] LABS: Alanine Aminotransferase 26 U/L (7-40); Albumin 3.9 g/dL (3.2-4.8); Alkaline Phosphatase 105 U/L (46-116); Anion Gap 9 (5-15); BUN/Creatinine Ratio 14.1 (10.0-20.0); Bilirubin, Total 0.5 mg/dL (0.2-1.0); Blood Urea Nitrogen 9 mg/dL (9-23); Calcium 8.6 mg/dL (8.7-10.4); Carbon Dioxide 25 mmol/L (20-31); Chloride 107 mmol/L (98-107); Glucose 91 mg/dL (74-106); Potassium 4.1 mmol/L (3.5-5.1); Sodium 141 mmol/L (136-145); Total Protein 6.5 g/dL (5.7-8.2)
[2025-05-06] MEDS: LEVOTHYROXINE SODIUM 100 MCG TAB PO SCH (06:21)
[2025-05-06] MEDS: LEVOTHYROXINE SODIUM 50 MCG TAB PO SCH (06:21)
[2025-05-06 08:00] VITALS: PULSE 71; RESP 18; O2SAT 96
[2025-05-06 09:00] VITALS: BP 127/75; PULSE 90; RESP 17; TEMP 98.8; O2SAT 96
[2025-05-06] MEDS: PANTOPRAZOLE 40 MG/10 ML VIAL INJ IV SCH (10:02)
[2025-05-06 12:40] VITALS: BP 123/85; PULSE 88; RESP 18; TEMP 99; O2SAT 97
--- NOTE | 2025-05-06 13:11 | DVHDS2 ---
Discharge Summary Date of Admission May 04, 2025 at 21:51 Date of Discharge: May 06, 2025 Labs/Diagnostic Data: Laboratory Results Test 05/06/25 04:55 05/05/25 08:26 05/04/25 16:49 05/04/25 15:25 White Blood Count 5.9 10^3/uL (4.4-10.8) Red Blood Count 4.26 10^6/uL (4.0-5.20) Hemoglobin 11.8 g/dL (12.2-16.2) Hematocrit 35.5 % (36.0-46.0) Mean Corpuscular Volume 83.4 fL (80.0-100.0) Mean Corpuscular Hemoglobin 27.8 pg (28.0-32.0) Mean Corpuscular Hemoglobin Concent 33.3 g/dL (32.0-36.0) Red Cell Distribution Width 16.7 % (11.8-14.3) Platelet Count 295 10^3/uL (140-450) Mean Platelet Volume 6.8 fL (6.9-10.8) Neutrophils (%) (Auto) 68.0 % (37.0-80.0) Lymphocytes (%) (Auto) 21.2 % (10.0-50.0) Monocytes (%) (Auto) 8.0 % (0.0-12.0) Eosinophils (%) (Auto) 2.1 % (0.0-7.0) Basophils (%) (Auto) 0.7 % (0.0-2.0) Neutrophils # (Auto) 4.0 10 ^3/uL (1.6-8.6) Lymphocytes # (Auto) 1.3 10 ^3/uL (0.4-5.4) Monocytes # (Auto) 0.5 10 ^3/uL (0-1.3) Eosinophils # (Auto) 0.1 10 ^3/uL (0-0.8) Basophils # (Auto) 0 10 ^3/uL (0-0.2) Nucleated Red Blood Cells 0.1 % Sodium Level 141 mmol/L (136-145) Potassium Level 4.1 mmol/L (3.5-5.1) Chloride Level 107 mmol/L (98-107) Carbon Dioxide Level 25 mmol/L (20-31) Anion Gap 9 (5-15) Blood Urea Nitrogen 9 mg/dL (9-23) Creatinine 0.64 mg/dL (0.550-1.02) Glomerular Filtration Rate Calc 115 mL/min (>90) BUN/Creatinine Ratio 14.1 (10.0-20.0) Serum Glucose 91 mg/dL (74-106) Calcium Level 8.6 mg/dL (8.7-10.4) Total Bilirubin 0.5 mg/dL (0.2-1.0) Aspartate Amino Transferase (AST) 22 U/L (13-40) Alanine Aminotransferase (ALT) 26 U/L (7-40) Alkaline Phosphatase 105 U/L (46-116) Total Protein 6.5 g/dL (5.7-8.2) Albumin 3.9 g/dL (3.2-4.8) Stool Occult Blood Sample #3 Negative (Negative) Stool for White Cells None seen Urine Color Yellow (Yellow) Urine Clarity Clear (Clear) Urine pH 6.5 (5.0-9.0) Urine Specific [place] 1.024 (1.001-1.035) Urine Protein Negative (Negative) Urine Ketones Negative (Negative) Urine Blood Negative /uL (Negative) Urine Nitrite Negative (Negative) Urine Bilirubin Negative (Negative) Urine Urobilinogen Normal mg/dL (Negative) Urine Leukocyte Esterase 1+ /uL (Negative) Urine RBC 3 /hpf (0 - 4) Urine Microscopic WBC 1 /HPF (0-5) Urine Squamous Epithelial Cells Few /hpf (<5) Urine Bacteria None seen /hpf (None Seen) Urine Glucose Normal mg/dL (Normal) Erythrocyte Sedimentation Rate 22 mm/hr (0-20) C-Reactive Protein High Sensitivity 0.61 mg/dL (<1.0) Lipase 46 U/L (12-53) Thyroid Stimulating Hormone (TSH) 2.19 uIU/mL (0.55-4.78) Other Laboratory Tests 05/06/25 04:55 Brief Hx & Hospital Course: Janet Matthew is a 39-year old female with past medical history of diverticulitis, overactive bladder, Juancarlos's, endometriosis, bipolar disorder, anxiety, depression, GERD who presented to the hospital with complaints of abdominal pain and diarrhea since 3 days. She also complains of associated fever and nausea. She rates the abdominal pain 8 on 10 in intensity, dull, continuous, radiating to the front of the abdomen. She reports of 3-4 episodes of diarrhea yesterday. Patient states that she has a history of diverticulitis, and it recurs when she eats a lot of sugar which she did during . Patient had a colonoscopy in November when diverticulitis was diagnosed. 05/06: Abdominal pain improving, passing gas, bowel sounds present. No nausea. Labs stable, stable for discharge as per plan below. Patient will need Augmentin 875 twice daily for 5 days, full liquid diet for 1 week advance thereafter. Prn Zofran ODT 4 mg q.6 PRN as needed,. Pain control 1st line Tylenol OTC, second-line ibuprofen OTC, 3rd line prescription [place] 5 mg q.6h as needed.. Continue other home medications. Follow up with PCP. [facility] 1 week. Follow up with GI as scheduled. Diagnosis: Colitis, likely infectious Sigmoid diverticulitis Chronic Juancarlos's thyroiditis Bipolar disorder Anxiety depression History of endometriosis plan: - Augmentin 875 twice daily for 5 days, - full liquid diet for 1 week advance thereafter. -Prn Zofran ODT 4 mg q.6 PRN as needed,. -Pain control 1st line Tylenol OTC, second-line ibuprofen OTC, 3rd line prescription [place] 5 mg q.6h as needed.. -Continue other home medications. -Follow up with PCP. [facility] 1 week. -Follow up with GI as scheduled. Condition at Discharge: Fair Final Diagnosis/Problems List Colitis, likely infectious Sigmoid diverticulitis Chronic Juancarlos's thyroiditis Bipolar disorder Anxiety depression History of endometriosis Discharge Disposition: Home Discharge Instruct/Medications Scheduled Amoxicillin & Pot Clavulanate (Augmentin Tablet), 875 MG PO BID Hydrocodone-Acetaminophen (Hydrocodone Bitartrate/AC 5-325 mg), 1 TAB PO QIDPRN Lamotrigine (Lamotrigine), 100 MG PO BID, (Reported) Levothyroxine Sodium (Levothyroxine Sodium), 50 MCG PO QAM Methylphenidate Hcl ([place]), 1 TAB PO DAILY, (Reported) Methylphenidate Hcl (Methylphenidate Hcl Cd), 36 MG OR DAILY, (Reported) Omeprazole (Gnp Omeprazole), 40 MG PO DAILY, (Reported) Scheduled PRN Acetaminophen (Acetaminophen), 500 MG PO Q4HP PRN Ibuprofen Micronized (Ibuprofen), 800 MG PO Q8HP PRN Ondansetron Odt 4MG Tab (Zofran Po), 4 MG PO Q6HP PRN Miscellaneous Medications Aripiprazole (Abilify Mycite Maintenanc), 50 MG PO, (Reported) Desvenlafaxine (Desvenlafaxine Er), 50 MG OR, (Reported) Hydroxyzine Hcl (Hydroxyzine Hcl), 10 MG PO, (Reported) Levothyroxine Sodium (Levothyroxine Sodium), 200 MCG PO, (Reported) Mirabegron Base (Myrbetriq), 50 MG OR, (Reported) Discharge Statement: "Patient was advised to return to the ER or call 911 if any headaches, dizziness, shortness of breath, chest pain, abdominal pain, bleeding, fevers, or worsening of medical condition. Patient was counseled about treatment plan, medications, possible side effects, patientverbalized understanding. All questions were answered to the best of my ability. This discharge took greater then 30 minutes in planning, reviewing documentation, counseling the patient, and discussing with other team members." ASSESSMENT ASSESSMENT Assessment Date of Service: May 06, 2025 Billing Provider: FRED JEAN MD Common Visit Codes: [id number] DISCH DAY >30min FRED JEAN MD May 06, 2025 13:11
[2025-05-06] MEDS ORDERED: ZOFR4T PO (13:29)
[2025-05-06] MEDS ORDERED: HYDR-4902 PO (13:29)
[2025-05-06] MEDS ORDERED: AUG875T PO (13:29)
[2025-05-06 15:01] VITALS: BP 133/67; PULSE 62; RESP 17; TEMP 98.3; O2SAT 95
== END 2025-05-06 15:24 | disposition home or self-care (01) | DRG 244 ==
LOC: ER 15:07 → OVERFLOW 21:51 → EAST 05-05 17:37
PROVIDERS: ATTEND Emergency Medicine
DX: K57.32 Diverticulitis of large intestine without perforation or abscess without bleeding (principal); A09 Infectious gastroenteritis and colitis, unspecified; E06.3 Autoimmune thyroiditis; F31.9 Bipolar disorder, unspecified; K21.9 Gastro-esophageal reflux disease without esophagitis; F41.9 Anxiety disorder, unspecified; Z90.49 Acquired absence of other specified parts of digestive tract; Z98.891 History of uterine scar from previous surgery; Z98.51 Tubal ligation status; Z79.899 Other long term (current) drug therapy
CPT/HCPCS: 36415; 74176; 80048; 80053; 81001; 82270; 83690; 84443; 85025; 85048; 85652; 86141; 87177; 87493; 96365; G0378; J1885; J2470; J3490